=== PATIENT | female | born 1975 | race Caucasian/White ===

== ENCOUNTER → 2020-05-26 12:23 | Outpatient (BNVA) | payer OTHER, SELFPAY | PROVIDERS: PCP Family Medicine; Visit Provider Dietitian, Registered | DX: Z76.89 Persons encountering health services in other specified circumstances (principal) ==

== ENCOUNTER 2020-08-15 12:56 | Outpatient (REF) | payer OTHER, SELFPAY ==
--- NOTE | 2020-08-15 | MM_ITS ---
EXAMINATION: MM SCREENING DIGITAL BREAST TOMOSYNTHESIS, BILATERAL CLINICAL INFORMATION: Screening. Asymptomatic. The lifetime risk of breast cancer based on the Tyrer-Cuzick Model is 11%. COMPARISON: Mammography: 02/24/2018, 01/29/2017 TECHNIQUE: Digital breast tomosynthesis is performed in both the craniocaudal and mediolateral oblique views along with computer-aided detection (CAD). Synthesized 2D images are generated from the tomosynthesis. FINDINGS: There are scattered areas of fibroglandular density (ACR BI-RADS breast composition Category b). There are no significant masses, abnormal calcifications, or other abnormalities. Parenchymal pattern is similar to prior study. The axilla and skin contours are unremarkable. MM/MM tomosynthesis screening BI IMPRESSION: No mammographic evidence of malignancy. ASSESSMENT: BI-RADS 1: Negative RECOMMENDATION: Routine annual mammography screening. This patient's information was entered into a reminder system with a target due date for their next mammogram.
== END 2020-08-15 12:57 | disposition home or self-care (01) ==
LOC: HO.MAMMO 12:56
PROVIDERS: PCP Family Medicine; Visit Provider Family Medicine
DX: Z12.31 Encounter for screening mammogram for malignant neoplasm of breast (principal)
CPT/HCPCS: 77063; 77067

== ENCOUNTER → 2020-08-23 09:19 | Outpatient (BNVA) | payer OTHER, SELFPAY | PROVIDERS: PCP Family Medicine; Visit Provider Physician Assistant | DX: Z76.89 Persons encountering health services in other specified circumstances (principal) ==

== ENCOUNTER → 2020-09-12 07:45 | Outpatient (BNVA) | payer OTHER, SELFPAY | PROVIDERS: PCP Family Medicine; Visit Provider Dietitian, Registered ==

== ENCOUNTER 2020-09-30 07:02 | Outpatient (REF) | payer OTHER, SELFPAY ==
[2020-09-30 07:44] LABS: MANUAL DIFF FLAG NO
[2020-09-30 08:08] LABS: Basophils Percent Auto 0.5 % (0-2); Eosinophils Absolute Auto 0.4 X10*3/uL (0.0-0.4); Eosinophils Percent Auto 6.4 % (0-4); Hematocrit 42.2 % (37-47); Hemoglobin 13.6 g/dl (12.0-16.0); Imm Gran Abs Auto 0.01 X10*3/uL (0.00-0.03); Imm Gran Pct Auto 0.2 % (0.0-0.4); Lymphocytes Absolute Auto 1.8 X10*3/uL (1.2-4.9); Lymphocytes Percent Auto 32.1 % (20-40); Mean Corpuscular HGB Conc 32.2 g/dl (31.0-35.0); Mean Corpuscular Hemoglobin 31.2 pg (27.0-33.0); Mean Corpuscular Volume 96.8 fL (80-98); Mean Platelet Volume 10.1 fL (9.4-12.3); Monocytes Absolute Auto 0.6 X10*3/uL (0.1-1.2); Monocytes Percent Auto 10.5 % (2-11); Neutrophils Absolute Auto 2.9 X10*3/uL (2.0-8.3); Neutrophils Percent Auto 50.3 % (45-73); Platelet Count 282 X10*3/uL (160-400); Red Blood Count 4.36 X10*6/uL (4.20-5.50); Red Cell Distribution Width 12.5 % (11.0-16.0); White Blood Count 5.7 X10*3/uL (4.8-10.8)
[2020-09-30 08:14] LABS: Alanine Aminotransferase 12 U/L (0-31); Albumin Level 4.3 g/dL (3.5-5.0); Alkaline Phosphatase 67 U/L (39-117); Anion Gap 11 (12-20); Aspartate Amino Transferase 18 U/L (5-31); Bilirubin Total 0.8 mg/dL (0.0-1.0); Blood Urea Nitrogen 8 mg/dL (9-16); C Reactive Protein 0.11 mg/dL (< or = 0.50); Carbon Dioxide 28 mmol/L (22-29); Chloride 105 mmol/L (96-108); Cholesterol 168 mg/dL; Estimated Glomerular Filt Rate > 60; Glucose Fasting 97 mg/dL (60-99); HDL Cholesterol 62 mg/dL; Iron 51 mcg/dL (30-160); LDL Cholesterol Calculated 93 mg/dl; Percent Iron Saturation 16 % (15-50); Potassium 4.5 mmol/L (3.3-5.1); Sodium 139 mmol/L (135-145); Total Iron Binding Capacity 320 mcg/dL (228-428); Total Protein 7.1 g/dL (6.5-8.0); Triglycerides 67 mg/dL; Unsaturated Iron Binding 269 ug/dL
[2020-09-30 08:17] LABS: Estimated Average Glucose 105 mg/dL; Hemoglobin A1c % 5.3 %
[2020-09-30 08:38] LABS: Ferritin 8 ng/mL (10-250); TSH reflex Free T4 1.31 uIU/mL (0.32-4.0); Vitamin D 25-OH Total 32.5 ng/mL (>30)
[2020-10-02 08:15] LABS: Folate 19.5 ng/mL (> or = 4.0); Vitamin B12 226 pg/mL (200-900)
[2020-10-02 17:32] LABS: Insulin Level Total 2.9 uIU/mL
[2020-10-03 06:26] LABS: Calcium (PTHI) 9.2 mg/dL (8.6-10.2); PTHI 38 pg/mL (14-64)
[2020-10-03 12:46] LABS: Zinc 71 mcg/dL (60-130)
[2020-10-04 10:22] LABS: Vitamin B1 8 nmol/L (8-30)
[2020-10-05 22:47] LABS: Vitamin A 30 mcg/dL (38-98)
== END 2020-09-30 07:03 | disposition home or self-care (01) ==
LOC: HO.LAB 07:02
PROVIDERS: PCP Family Medicine; Visit Provider Physician Assistant
DX: K91.2 Postsurgical malabsorption, not elsewhere classified (principal); Z90.3 Acquired absence of stomach [part of]; Z98.84 Bariatric surgery status; E66.01 Morbid (severe) obesity due to excess calories
CPT/HCPCS: 36415; 80053; 80061; 82306; 82607; 82728; 82746; 83036; 83525; 83540; 83970; 84425; 84443; 84590; 84630; 85025; 86140

== ENCOUNTER → 2020-10-17 08:03 | Outpatient (BNVA) | payer OTHER, SELFPAY | PROVIDERS: PCP Family Medicine; Visit Provider Dietitian, Registered ==

== ENCOUNTER → 2020-12-05 08:11 | Outpatient (BNVA) | payer OTHER, SELFPAY | PROVIDERS: PCP Family Medicine; Visit Provider Dietitian, Registered ==

== ENCOUNTER → 2020-12-12 08:10 | Outpatient (BNVA) | payer OTHER, SELFPAY | PROVIDERS: PCP Family Medicine; Visit Provider Dietitian, Registered ==

== ENCOUNTER 2021-02-13 14:04 | Inpatient (IN) | payer OTHER, SELFPAY ==
--- NOTE | ~2021-02-13 | XR_ITS ---
EXAMINATION: XR CHEST CLINICAL INFORMATION: NG tube placement COMPARISON: Chest x-ray April 19, 2016 TECHNIQUE: Frontal view of the chest was obtained. FINDINGS: Enteric tube terminates below the diaphragm with the proximal most side port in the region of the GE junction. The cardiac silhouette is normal in size. The lungs are well aerated. There is no lobar consolidation. No pleural effusion or pneumothorax. No gross osseous abnormality. XR/XR chest 1V IMPRESSION: Enteric tube terminates below the diaphragm with the proximal most side port in the region of the GE junction.
--- NOTE | ~2021-02-13 | CT_ITS ---
EXAMINATION: CT ABDOMEN AND PELVIS WITH CONTRAST CLINICAL INFORMATION: Abdominal pain. Gastric bypass. COMPARISON: Pelvic ultrasound dated 02/26/2019. Most recent CT abdomen/pelvis dated 04/25/2016. TECHNIQUE: Multidetector volumetric images were obtained from the superior aspect of the liver through the pubic symphysis following administration 85 mL of Omnipaque 350 intravenous contrast. Sagittal and coronal reformatted images were obtained on the technologist's workstation. Oral Contrast: No. This CT examination was performed using dose optimization techniques as appropriate, variously including the following: *Automated exposure control. *Adjustment of mA and/or kV according to patient size (this includes techniques or standardized protocols for targeted exams where dose is matched to indication/reason for exam; i.e. extremities or head). *Use of iterative reconstruction technique. DLP: 565 mGy-cm FINDINGS: LUNG BASES: The visualized lung bases are unremarkable. LIVER, GALLBLADDER, AND BILIARY TREE: The liver is normal in size, shape, and attenuation. No focal hepatic parenchymal lesion. Mild prominence of the common bile duct, which can be seen following cholecystectomy. The gallbladder is absent. PANCREAS: Unremarkable. SPLEEN: Unremarkable. ADRENAL GLANDS: Unremarkable. KIDNEYS AND URETERS: The kidneys are normal in size, shape, and attenuation. No hydronephrosis, hydroureter, or calculi seen. Left lower pole 0.6 cm hypodensity, unchanged. No perinephric stranding. BLADDER: Unremarkable. GASTROINTESTINAL TRACT: Status post Jaycob-en-Y gastric bypass. There is small bowel dilatation within the left upper quadrant with associated air-fluid levels. Both the proximal small bowel and the distal small bowel as well as the colon are largely nondistended. There appears to be a transition point adjacent to the distal jejunojejunal anastomosis as well as a possible additional transition within the left upper quadrant. Findings are consistent with a small bowel obstruction. An internal hernia and closed loop obstruction could be considered given the patient's history of prior surgery as well as the proximal and distal nondilated small bowel. No associated bowel wall thickening or inflammatory change. No pneumatosis. No evidence of bowel perforation. PERITONEAL CAVITY: No intra-abdominal free air or free fluid. No intra-abdominal mass or organized fluid collection/abscess formation. ABDOMINAL WALL: No significant hernia is appreciated. LYMPH NODES: No significant lymphadenopathy. VASCULAR: Unremarkable. PELVIC VISCERA: The uterus and adnexa are unremarkable. OSSEOUS STRUCTURES: Unremarkable. CT/CT abdomen pelvis w con IMPRESSION: 1. Status post Jaycob-en-Y gastric bypass. Dilated loops of small bowel within the left upper quadrant with possible transition points just proximal to the jejunojejunal anastomosis as well as within the left upper quadrant. The proximal and distal small bowel loops are nondilated. Findings are consistent with a small bowel obstruction. A closed-loop obstruction and internal hernia could be considered given the patient's surgical history. No evidence of bowel ischemia or perforation. 2. No intra-abdominal free air or free fluid. No organized fluid collection/abscess formation. This critical result was discussed with FATIMAH Culp at 7:49 PM on 02/13/2021 and it was ascertained that the content and urgency of the report was understood at the time of direct communication.
[2021-02-13 14:24] VITALS: BP 133/70; PULSE 51; RESP 18; TEMP 36.9; O2SAT 97; BMI 28.5
[2021-02-13 14:45] LABS: MANUAL DIFF FLAG NO
[2021-02-13 14:47] LABS: Basophils Percent Auto 0.3 % (0-2); Eosinophils Percent Auto 0.1 % (0-4); Glucose Urine UA NEG (NEG); Hematocrit 43.8 % (37-47); Hemoglobin 14.6 g/dl (12.0-16.0); Imm Gran Abs Auto 0.04 X10*3/uL (0.00-0.03); Imm Gran Pct Auto 0.3 % (0.0-0.4); Leukocyte Esterase Urine NEG (NEG); Lymphocytes Absolute Auto 1.1 X10*3/uL (1.2-4.9); Lymphocytes Percent Auto 8.5 % (20-40); Mean Corpuscular HGB Conc 33.3 g/dl (31.0-35.0); Mean Corpuscular Hemoglobin 31.5 pg (27.0-33.0); Mean Corpuscular Volume 94.6 fL (80-98); Mean Platelet Volume 10.1 fL (9.4-12.3); Monocytes Percent Auto 7.2 % (2-11); Neutrophils Absolute Auto 11.2 X10*3/uL (2.0-8.3); Neutrophils Percent Auto 83.6 % (45-73); Nitrite Urine NEG (NEG); Platelet Count 356 X10*3/uL (160-400); Red Blood Count 4.63 X10*6/uL (4.20-5.50); Urine Blood TRACE (NEG); Urine Ketones >=80 MG/DL (NEG); Urine Protein TRACE MG/DL (NEG-TRACE); White Blood Count 13.4 X10*3/uL (4.8-10.8)
[2021-02-13 14:49] LABS: Appearance Urine CLEAR; Color Urine YELLOW
[2021-02-13 14:53] LABS: Mucus Urine 2+ /LPF; Squamous Epithelial Cell Urine 2+ /LPF; WBC Urine 0-2 /HPF (0-4)
[2021-02-13 15:19] LABS: Alanine Aminotransferase 11 U/L (0-31); Albumin Level 4.6 g/dL (3.5-5.0); Alkaline Phosphatase 70 U/L (39-117); Anion Gap 14 (12-20); Aspartate Amino Transferase 15 U/L (5-31); Bilirubin Total 0.6 mg/dL (0.0-1.0); Blood Urea Nitrogen 14 mg/dL (9-16); Calcium 9.7 mg/dL (8.4-10.2); Carbon Dioxide 23 mmol/L (22-29); Chloride 106 mmol/L (96-108); Creatinine Clr Calc Pharmacy 94.8; Estimated Glomerular Filt Rate > 60; Glucose Random 140 mg/dL (60-115); Sodium 139 mmol/L (135-145); Total Protein 7.7 g/dL (6.5-8.0)
--- NOTE | 2021-02-13 18:14 | ED_ITS ---
HPI - Abdominal Pain General Chief Complaint: Abdominal Pain Stated Complaint: severe stomach pain, vomitting Time Seen by Provider: 02/13/21 18:09 Source: patient Mode of arrival: ambulatory Limitations: no limitations History of Present Illness HPI narrative: 45-year-old female with past medical history of gastric bypass, malabsorption syndrome following gastrectomy presents with approximately 1 week of 10/10 abdominal pain and distension with nausea, vomiting, and anorexia for the past 3 days. she has been unable to tolerate food or water. She has had intermittent chills but denies fevers, chest pain or pressure, palpitations, shortness breath, shortness breath on exertion, dysuria, hematuria, and edema. MD elicited complaint: abdominal pain Pertinent past history: other ( Jaycob-en-Y gastric bypass) Onset (ago): day(s) Pain Consistency: constant Location: diffuse Severity: severe Pain scale (0-10): 10 Quality: stabbing, aching and fullness Exacerbating factors: vomiting and movement Relieving factors: nothing Associated symptoms: nausea, vomiting, chills and anorexia Related Data Patient : No Home Medications Medication Instructions Recorded Confirmed Biotin 1 tab PO DAILY 08/23/20 02/13/21 cyanocobalamin (vitamin B-12) 1 tab PO DAILY 02/13/21 02/13/21 iron,carbonyl-vitamin C [Vitron-C] 1 tab PO DAILY 02/13/21 02/13/21 multivitamin 1 tab PO DAILY 02/13/21 02/13/21 Allergies Allergy/AdvReac Type Severity Reaction Status Date / Time No Known Allergies Allergy Verified 02/13/21 14:24 [No Known Allergies*] Review of Systems Review of Systems Constitutional: No Weight loss, No Fever, positive Chills, No Night Sweats, No Fatigue, No Malaise ENT/Mouth: No Hearing loss, No Ear Pain, No Nasal Congestion, No Sinus Pain, No Hoarseness, No sore throat, No Rhinorrhea, No Swallowing Difficulty Eyes: No Eye Pain, No Swelling, No Redness, No Foreign Body, No Discharge, No Vision Changes Cardiovascular: No Chest Pain, No SOB, No Dyspnea on Exertion, No Orthopnea, No Edema, No Palpitations Respiratory: No Cough, No Sputum, No Wheezing, No Smoke Exposure, No Dyspnea Gastrointestinal: Positive Nausea, Positive Vomiting, no Diarrhea, positive abdominal Pain, No Hematochezia, No Melena Genitourinary: no irregular bleeding, No Dysuria, No Urinary Frequency, No Hematuria, No Urinary Incontinence, No Urgency, No Flank Pain, No Urinary Flow Changes, No Hesitancy Musculoskeletal: No joint pain, No Myalgias, No Joint Swelling Skin: No Skin Lesions, No rash Neuro: No Weakness, No Numbness, No Paresthesias, No Loss of Consciousness, No Dizziness, No Headache Psych: No Anxiety/Panic, No Depression, No SI/HI/AH/VH, No Social Issues Heme/Lymph: No Bruising, No Bleeding,No Lymphadenopathy Endocrine: No Polyuria, No Polydipsia, No Temperature Intolerance Yes all other systems are reviewed and are negative Physical Exam Vital Signs: Vital Signs: Last Vital Signs Temp 98.7 F 02/13/21 22:00 Pulse 57 02/13/21 22:00 Resp 16 02/13/21 22:00 BP 115/70 02/13/21 22:00 Pulse Ox 97 02/13/21 22:00 Body Mass Index 28.5 Appearance: Alert. Oriented X3. moderate distress in position. Eyes: Pupils equal, round and reactive to light. ENT: Pharynx normal. Neck: Normal inspection. Neck supple. CVS: Normal heart rate and rhythm. Pulses normal. Respiratory: No respiratory distress. Breath sounds normal. Abdomen: Soft and diffusely tender, hyperactive bowel sounds. Skin: Skin warm and dry. Normal skin color. Normal skin turgor. Extremities: No lower extremity edema. Neuro: No motor deficit. No sensory deficit. Course Course Course Narrative: 45-year-old female presents with abdominal pain, abdominal distention, nausea, vomiting, and inability to tolerate p.o. for approximately 3 days. Abdomen is diffusely tender and distended, will order CT scan of abdomen and pelvis with contrast as patient does have a history of Jaycob-en-Y gastric bypass and has symptoms consistent with SBO, colitis, acute abdomen. Will resuscitate with fluids, and pain management with Zofran. CT scan of abdomen and pelvis is positive for small bowel obstruction. Discussion with surgery, bariatric, plan of care is to admit. Will place NG tube. Consultations Consultation #1: Lance COX - Abdominal Pain Differential Diagnosis Differential diagnosis: Likely abdominal pain, acute appendicitis, bowel perforation, calculus of kidney, diverticulitis, mesenteric ischemia, pancreatitis, peptic ulcer disease and small bowel obstruction Medical Records Attestation: I reviewed the patient's medical records. Lab Data Attestation: I reviewed the patient's lab results. Result diagrams: 02/13/21 14:41 02/13/21 14:41 Labs: Lab Results 02/13/21 02/13/21 02/13/21 Range/Units 14:41 14:41 14:41 WBC 13.4 H (4.8-10.8) X10*3/uL RBC 4.63 (4.20-5.50) X10*6/uL Hgb 14.6 (12.0-16.0) g/dl Hct 43.8 (37-47) % MCV 94.6 (80-98) fL MCH 31.5 (27.0-33.0) pg MCHC 33.3 (31.0-35.0) g/dl RDW 13.0 (11.0-16.0) % Plt Count 356 D (160-400) X10*3/uL MPV 10.1 (9.4-12.3) fL Immature Gran % (Auto) 0.3 (0.0-0.4) % Neut % (Auto) 83.6 H (45-73) % Lymph % (Auto) 8.5 L (20-40) % [place] % (Auto) 7.2 (2-11) % Eos % (Auto) 0.1 (0-4) % Baso % (Auto) 0.3 (0-2) % Lymph # (Auto) 1.1 L (1.2-4.9) X10*3/uL [place] # (Auto) 1.0 (0.1-1.2) X10*3/uL Eos # (Auto) 0.0 (0.0-0.4) X10*3/uL Baso # (Auto) 0.0 (0.0-0.2) X10*3/uL Abs Immat Gran (auto) 0.04 H (0.00-0.03) X10*3/uL Absolute Neuts (auto) 11.2 H (2.0-8.3) X10*3/uL Absolute Nucleated RBC 0.000 (0.0-0.012) X10*3/uL Nucleated RBC % (auto) 0.0 (0.0-0.2) /100WBC Hold Blue Top SEE NOTE Sodium 139 (135-145) mmol/L Potassium 4.0 (3.3-5.1) mmol/L Chloride 106 (96-108) mmol/L Carbon Dioxide 23 (22-29) mmol/L Anion Gap 14 (12-20) BUN 14 D (9-16) mg/dL Creatinine 0.76 (0.5-1.4) mg/dL Estim Creat Clear Calc 94.8 Estimated GFR > 60 Random Glucose 140 H (60-115) mg/dL Calcium 9.7 D (8.4-10.2) mg/dL Total Bilirubin 0.6 (0.0-1.0) mg/dL AST 15 (5-31) U/L ALT 11 (0-31) U/L Alkaline Phosphatase 70 (39-117) U/L Total Protein 7.7 (6.5-8.0) g/dL Albumin 4.6 (3.5-5.0) g/dL Urine Color Urine Appearance Urine pH (5.0-8.0) Ur Specific [place] (1.005-1.025) Urine Protein (NEG-TRACE) MG/DL Urine Glucose (UA) (NEG) MG/DL Urine Ketones (NEG) MG/DL Urine Blood (NEG) Urine Nitrite (NEG) Ur Leukocyte Esterase (NEG) Urine RBC (0) /HPF Urine WBC (0-4) /HPF Ur Squamous Epith Cells /LPF Urine Bacteria /LPF Urine Mucus /LPF 02/13/21 Range/Units 14:41 WBC (4.8-10.8) X10*3/uL RBC (4.20-5.50) X10*6/uL Hgb (12.0-16.0) g/dl Hct (37-47) % MCV (80-98) fL MCH (27.0-33.0) pg MCHC (31.0-35.0) g/dl RDW (11.0-16.0) % Plt Count (160-400) X10*3/uL MPV (9.4-12.3) fL Immature Gran % (Auto) (0.0-0.4) % Neut % (Auto) (45-73) % Lymph % (Auto) (20-40) % [place] % (Auto) (2-11) % Eos % (Auto) (0-4) % Baso % (Auto) (0-2) % Lymph # (Auto) (1.2-4.9) X10*3/uL [place] # (Auto) (0.1-1.2) X10*3/uL Eos # (Auto) (0.0-0.4) X10*3/uL Baso # (Auto) (0.0-0.2) X10*3/uL Abs Immat Gran (auto) (0.00-0.03) X10*3/uL Absolute Neuts (auto) (2.0-8.3) X10*3/uL Absolute Nucleated RBC (0.0-0.012) X10*3/uL Nucleated RBC % (auto) (0.0-0.2) /100WBC Hold Blue Top Sodium (135-145) mmol/L Potassium (3.3-5.1) mmol/L Chloride (96-108) mmol/L Carbon Dioxide (22-29) mmol/L Anion Gap (12-20) BUN (9-16) mg/dL Creatinine (0.5-1.4) mg/dL Estim Creat Clear Calc Estimated GFR Random Glucose (60-115) mg/dL Calcium (8.4-10.2) mg/dL Total Bilirubin (0.0-1.0) mg/dL AST (5-31) U/L ALT (0-31) U/L Alkaline Phosphatase (39-117) U/L Total Protein (6.5-8.0) g/dL Albumin (3.5-5.0) g/dL Urine Color YELLOW Urine Appearance CLEAR Urine pH 7.0 (5.0-8.0) Ur Specific [place] 1.020 (1.005-1.025) Urine Protein TRACE (NEG-TRACE) MG/DL Urine Glucose (UA) NEG (NEG) MG/DL Urine Ketones >=80 (NEG) MG/DL Urine Blood TRACE (NEG) Urine Nitrite NEG (NEG) Ur Leukocyte Esterase NEG (NEG) Urine RBC 5-9 H (0) /HPF Urine WBC 0-2 (0-4) /HPF Ur Squamous Epith Cells 2+ /LPF Urine Bacteria NONE /LPF Urine Mucus 2+ /LPF Imaging Data CT abdomen pelvis: Attestation: I personally reviewed and interpreted this imaging study as follows: Radiologist's impression: FINDINGS: LUNG BASES: The visualized lung bases are unremarkable. LIVER, GALLBLADDER, AND BILIARY TREE: The liver is normal in size, shape, and attenuation. No focal hepatic parenchymal lesion. Mild prominence of the common bile duct, which can be seen following cholecystectomy. The gallbladder is absent. PANCREAS: Unremarkable. SPLEEN: Unremarkable. ADRENAL GLANDS: Unremarkable. KIDNEYS AND URETERS: The kidneys are normal in size, shape, and attenuation. No hydronephrosis, hydroureter, or calculi seen. Left lower pole 0.6 cm hypodensity, unchanged. No perinephric stranding. BLADDER: Unremarkable. GASTROINTESTINAL TRACT: Status post Jaycob-en-Y gastric bypass. There is small bowel dilatation within the left upper quadrant with associated air-fluid levels. Both the proximal small bowel and the distal small bowel as well as the colon are largely nondistended. There appears to be a transition point adjacent to the distal jejunojejunal anastomosis as well as a possible additional transition within the left upper quadrant. Findings are consistent with a small bowel obstruction. An internal hernia and closed loop obstruction could be considered given the patient's history of prior surgery as well as the proximal and distal nondilated small bowel. No associated bowel wall thickening or inflammatory change. No pneumatosis. No evidence of bowel perforation. PERITONEAL CAVITY: No intra-abdominal free air or free fluid. No intra-abdominal mass or organized fluid collection/abscess formation. ABDOMINAL WALL: No significant hernia is appreciated. LYMPH NODES: No significant lymphadenopathy. VASCULAR: Unremarkable. PELVIC VISCERA: The uterus and adnexa are unremarkable. OSSEOUS STRUCTURES: Unremarkable. CT/CT abdomen pelvis w con IMPRESSION: 1. Status post Jaycob-en-Y gastric bypass. Dilated loops of small bowel within the left upper quadrant with possible transition points just proximal to the jejunojejunal anastomosis as well as within the left upper quadrant. The proximal and distal small bowel loops are nondilated. Findings are consistent with a small bowel obstruction. A closed-loop obstruction and internal hernia could be considered given the patient's surgical history. No evidence of bowel ischemia or perforation. 2. No intra-abdominal free air or free fluid. No organized fluid collection/abscess formation. This critical result was discussed with FATIMAH Culp at 7:49 PM on 02/13/2021 and it was ascertained that the content and urgency of the report was understood at the time of direct communication. Chest x-ray: Attestation: I personally reviewed and interpreted this imaging study as follows: Radiologist's impression: EXAMINATION: XR CHEST CLINICAL INFORMATION: NG tube placement COMPARISON: Chest x-ray April 19, 2016 TECHNIQUE: Frontal view of the chest was obtained. FINDINGS: Enteric tube terminates below the diaphragm with the proximal most side port in the region of the GE junction. The cardiac silhouette is normal in size. The lungs are well aerated. There is no lobar consolidation. No pleural effusion or pneumothorax. No gross osseous abnormality. XR/XR chest 1V IMPRESSION: Enteric tube terminates below the diaphragm with the proximal most side port in the region of the GE junction. Discharge Plan Discharge Clinical Impression: Small bowel obstruction Patient Disposition: Admitted As Inpatient [facility] Past Medical History Attestation statement: The following information was validated with the patient. Source: old records reviewed Medical History Arthritis Intestinal malabsorption following gastrectomy Overweight (BMI 25.0-29.9) Pre-diabetes Vitamin A deficiency Vitamin B12 deficiency Surgical History Delivery by section S/P gastric bypass S/P laparoscopic appendectomy S/P laparoscopic cholecystectomy Family History Family History Father Type 2 diabetes mellitus HTN (hypertension) Mother HTN (hypertension) Type 2 diabetes mellitus Cancer Maternal Grandmother Type 2 diabetes mellitus Skin cancer Maternal Grandfather No problems noted. Maternal Aunt Breast cancer Brother No problems noted. Son No problems noted. Son No problems noted. Son No problems noted. Social History Social History Alcohol intake: current Alcohol intake frequency: holidays/special occasions only Patient Tobacco Use Status: Never used Tobacco Use of substances other than those prescribed or required for medical reasons: No Advance Directives: No Advance Directives Information Provided: Yes Patient : No service: No Current occupational status: unemployed
[2021-02-13 18:17] VITALS: BP 124/72; PULSE 50; RESP 18; O2SAT 100
[2021-02-13] MEDS: 0.9 % Sodium Chloride 1,000 ML 999 ML IVCONT ×2 (18:25→20:14)
[2021-02-13 18:31] VITALS: RESP 18
[2021-02-13] MEDS: Morphine Sulfate 4 MG/ML CARTRIDGE IVPUSH ×2 (18:31→20:14)
[2021-02-13] MEDS: ondansetron HCL 4 MG/2 ML VIAL IVPUSH (18:32)
[2021-02-13] MEDS: iohexoL 350 MG/ML 100 ML INFUS..BTL 85 ML IV (19:09)
[2021-02-13 20:00] VITALS: BP 111/65; PULSE 56; RESP 16; TEMP 37.2; O2SAT 97
[2021-02-13 21:08] LABS: COVID-19 Test Negative (Negative); IDNOW Serial# 9DD0AD1C
--- NOTE | 2021-02-13 21:22 | PHA.MEDREC ---
Pharmacy Consult ? Medication Reconciliation Pharmacy has completed the medication reconciliation.
[2021-02-13] MEDS: Lidocaine HCl 4 % MPF w/MADgic 5 ML AMPUL 1 APPL TOPICAL (21:37)
--- NOTE | 2021-02-13 21:50 | MHC.CM.ED ---
CM met with pt. A&Ox3. Pt has NG tube in place and is very uncomfortable. Pt answering by nodding, with minimal speech. No HCP on file and pt is not interested in completing one at this time. , Arnold Laurent is contact ([phone]). Pt has no DME or services at home. Expect D/C home without services. to provide transportation home. CM to follow for D/C needs.
[2021-02-13 22:00] VITALS: BP 115/70; PULSE 57; RESP 16; TEMP 37.1; O2SAT 97
--- NOTE | 2021-02-13 23:54 | PC.NURSE ---
RADIOLOGY SHOWS NG TUBE AT GE JUNCTION, NG TUBE ADVANCE 2 INCHED FURTHER INTO NARE. PT COMPLAINED OF UPPER ABDOMINAL CRAMING, SIMILAIR TO WHEN SHE ARRIVED IN ER.
[2021-02-13 23:58] VITALS: BP 132/77; PULSE 54; RESP 16; O2SAT 96
[2021-02-14] VITALS (10 sets, daily range): BP systolic 104–133; BP diastolic 68–79; PULSE 52–69; RESP 15–18; TEMP 36.2–37.2; O2SAT 94–96
[2021-02-14] MEDS: ondansetron HCL 4 MG/2 ML VIAL IVPUSH ×3 (00:16→16:01)
[2021-02-14] MEDS: Morphine Sulfate 2 MG/ML CARTRIDGE IVPUSH ×4 (00:16→12:41)
[2021-02-14] MEDS: Famotidine/PF 20 MG/2 ML VIAL IVPUSH ×3 (00:16→20:24)
[2021-02-14] MEDS: Lactated Ringers 1,000 ML 125 ML IVCONT ×3 (00:17→16:02)
--- NOTE | 2021-02-14 01:40 | PC.NURSE ---
BEDSIDE SUCTION SET TO INTERMITTENT 80MMhG. INITIALLY WHEN NG TUBE INSERTED, SECRETIONS AND WATER FROM INSERTION IN TUBING AND CANISTER. NO MEASURABLE AMOUNT OF GASTRIC CONTENTS FROM NG TUBE. CONFIRMED BY CHEST XRAY AND PISTON SYRINGE, BUBBLING HEARD OVER EPIGASTRIUM WHEN AIR PUSHED THROUGH NG TUBE.
--- NOTE | 2021-02-14 04:54 | PC.NURSE ---
PT ASSISTED TO BEDSIDE COMMODE, ABLE TO VOID. BLOOD IN COMMODE DUE TO PERIOD? SB BLOOD.
[2021-02-14 06:13] LABS: MANUAL DIFF FLAG NO
[2021-02-14 06:18] LABS: Basophils Percent Auto 0.3 % (0-2); Eosinophils Absolute Auto 0.1 X10*3/uL (0.0-0.4); Eosinophils Percent Auto 0.5 % (0-4); Hematocrit 37.8 % (37-47); Hemoglobin 12.2 g/dl (12.0-16.0); Imm Gran Abs Auto 0.05 X10*3/uL (0.00-0.03); Imm Gran Pct Auto 0.4 % (0.0-0.4); Lymphocytes Absolute Auto 0.9 X10*3/uL (1.2-4.9); Lymphocytes Percent Auto 8.1 % (20-40); Mean Corpuscular HGB Conc 32.3 g/dl (31.0-35.0); Mean Corpuscular Hemoglobin 31.3 pg (27.0-33.0); Mean Corpuscular Volume 96.9 fL (80-98); Mean Platelet Volume 10.4 fL (9.4-12.3); Monocytes Absolute Auto 1.3 X10*3/uL (0.1-1.2); Monocytes Percent Auto 11.1 % (2-11); Neutrophils Absolute Auto 9.2 X10*3/uL (2.0-8.3); Neutrophils Percent Auto 79.6 % (45-73); Platelet Count 258 X10*3/uL (160-400); Red Cell Distribution Width 13.2 % (11.0-16.0); White Blood Count 11.5 X10*3/uL (4.8-10.8)
[2021-02-14 06:45] LABS: Alanine Aminotransferase 16 U/L (0-31); Albumin Level 3.7 g/dL (3.5-5.0); Alkaline Phosphatase 59 U/L (39-117); Anion Gap 12 (12-20); Aspartate Amino Transferase 19 U/L (5-31); Bilirubin Total 0.7 mg/dL (0.0-1.0); Blood Urea Nitrogen 12 mg/dL (9-16); Calcium 8.4 mg/dL (8.4-10.2); Carbon Dioxide 23 mmol/L (22-29); Chloride 109 mmol/L (96-108); Creatinine Clr Calc Pharmacy 104.4; Estimated Glomerular Filt Rate > 60; Glucose Random 126 mg/dL (60-115); Magnesium 2.1 mg/dL (1.6-2.6); Potassium 3.9 mmol/L (3.3-5.1); Sodium 140 mmol/L (135-145); Total Protein 6.1 g/dL (6.5-8.0)
[2021-02-14] MEDS: 0.9 % Sodium Chloride Flush 3 ML SYRINGE IVFLUSH (07:40)
--- NOTE | 2021-02-14 07:43 | PC.NURSE ---
PATIENT HAS NO DRAINAGE FORM NG TUBE, CAN SEE SOME CLEAR FLUID IN TUBE. REPORTS HER PAIN HAS DECREASED BUT STILL CAN FEEL PAIN. AIR PUSHED INTO NG TUBE TO CHECK PLACEMENT, COULD HEAR BUBBLING SOUND BUT SOUNDED FAINT. WILL CONTACT [facility] AND NOTIFY.
--- NOTE | 2021-02-14 07:55 | PC.NURSE ---
PATIENT REPOSITIONED AND TUBE FLUSHED WITH AIR AGAIN, COULD HEAR PLACEMENT IN STOMACH BETTER THAN PRIOR. MESSAGE SENT TO OLIVA OJEDA BUT TIGER TEXT UNAVAILABLE AT THIS TIME.
--- NOTE | 2021-02-14 08:29 | PC.NURSE ---
OLIVA SHERIDAN AT BEDSIDE, OK TO REMOVE NG TUBE, NG TUBE REMOVED.
--- NOTE | 2021-02-14 09:31 | PM.HPGS ---
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 She has been doing very well with excellent weight loss and no complications from her surgery until 2 days [facility] when she had an acute onset of mid to left abdominal pain. She states the pain had been consistent over 2 days and was associated with small amounts of cleaar and yellow colored vomitus evry 20 minutes. She had not been able to tolerate and food or liquid intake. She denied flatus or BM's over the past 2 daays except for one episode of lose stool on the day of admissiion. She called the office yesterday and was advised to go to the ED at [facility] to rule out bowel obstruction and dehydration. On arrival to the ED her VSS, labs showed elevation in WBC ct with mild left shift. CT abd revealed proximal bowel dilitation with question of 2 transitionpoints distal to j-j anastomosis. Pt was seen by ED staff and NGT was placed, surgical consult was called and patient was admitted to bariatric surgery service under Dr Mcclain. This am patient reports feeling less abd pain, denies any flatus, BM's or nausea. She is asking about NGT being removed due to pain. Review of Systems Constitutional: Constitutional: Reports as per HPI and Reports no additional constitutional complaints ENT: Denies dysphagia Cardiovascular: Cardiovascular: Denies chest pain, Denies syncope, Denies Loss of Consciousness and Denies dyspnea Respiratory: Respiratory: Denies no additional respiratory complaints, Denies cough, Denies pain on inspiration and Denies dyspnea Gastrointestinal: Gastrointestinal: Reports as per HPI, Denies belching, Denies melena, Denies dysphagia, Denies diarrhea and Denies hematemesis Musculoskeletal: Musculoskeletal: Denies back pain, Denies myalgias and Denies arthralgias Neurologic: Denies syncope PMF Past Medical History Medical History Arthritis Intestinal malabsorption following gastrectomy Overweight (BMI 25.0-29.9) Pre-diabetes Vitamin A deficiency Vitamin B12 deficiency Family History Family History Father Type 2 diabetes mellitus HTN (hypertension) Mother HTN (hypertension) Type 2 diabetes mellitus Cancer Maternal Grandmother Type 2 diabetes mellitus Skin cancer Maternal Grandfather No problems noted. Maternal Aunt Breast cancer Brother No problems noted. Son No problems noted. Son No problems noted. Son No problems noted. Surgical History Surgical History Delivery by section S/P gastric bypass S/P laparoscopic appendectomy S/P laparoscopic cholecystectomy Social History Social History Alcohol intake: current Alcohol intake frequency: holidays/special occasions only Patient Tobacco Use Status: Never used Tobacco Use of substances other than those prescribed or required for medical reasons: No Advance Directives: No Advance Directives Information Provided: Yes Patient : No service: No Current occupational status: unemployed Meds Allergies Allergy/AdvReac Type Severity Reaction Status Date / Time No Known Allergies Allergy Verified 02/13/21 14:24 [No Known Allergies*] Active Medications: Current Medications Generic Name Dose Route Start Last Admin Trade Name Surinder PRN Reason Stop Dose Admin Famotidine 20 mg 02/13/21 23:58 02/14/21 08:37 Famotidine/Pf 20 Mg/2 Ml Vial IVPUSH 20 mg BID VIET Administration Lactated Ringer's 1,000 mls @ 125 mls/hr 02/13/21 23:58 02/14/21 07:37 Lr IVCONT 125 mls/hr .Q8H VIET Administration Morphine Sulfate 2 mg 02/13/21 23:58 02/14/21 08:37 Morphine Sulfate 2 Mg/Ml Cartridge IVPUSH 2 mg Q4H PRN Administration Pain, Moderate (Pain Scale 4-6 Ondansetron HCl 4 mg 02/14/21 00:00 02/14/21 07:30 Ondansetron Hcl 4 Mg/2 Ml Vial IVPUSH 4 mg Q8H VIET Administration Sodium Chloride 3 ml 02/14/21 00:00 02/14/21 07:40 0.9 % Sodium Chloride Flush 3 Ml Syringe IVFLUSH 3 ml QSHIFT VIET Administration Home Medications Medication Instructions Recorded Confirmed Last Taken Type Biotin 1 tab PO DAILY 08/23/20 02/13/21 02/11/21 History cyanocobalamin (vitamin B-12) 1 tab PO DAILY 02/13/21 02/13/21 02/11/21 History iron,carbonyl-vitamin C [Vitron-C] 1 tab PO DAILY 02/13/21 02/13/21 Unknown History multivitamin 1 tab PO DAILY 02/13/21 02/13/21 02/11/21 History Physical Exam Vital Signs: Vital Signs: Last Vital Signs Temp 98.7 F 02/14/21 06:29 Pulse 69 02/14/21 07:28 Resp 16 02/14/21 07:28 BP 133/79 02/14/21 08:38 Pulse Ox 96 02/14/21 07:28 Body Mass Index 28.5 Const: Other: Pt is lying in bed in ED. General: cooperative, healthy appearing, comfortable, no acute distress, well developed, alert and awake Nutritional Appearance: average body habitus Limitations: no limitations Resp: Effort & Inspection: normal respiratory effort, no audible wheezes, no cough and not labored Auscultation: clear to auscultation bilaterally Cardio: Rate: regular rate Rhythm: regular rhythm Heart sounds: normal S1 and S2 GI: Inspection: Yes normal to inspection and No distended Palpation (GI): Soft to palpation (mild fullness felt LUQ with minimal tenderness), no guarding, not rigid, no hernias and no masses Auscultation: Absent bowel sounds Extrem: General: Yes normal to inspection, Yes no calf tenderness and No edema Psych: Appearance: grossly normal Speech and movement: Normal speech and movement present Affect: normal affect Thought process: Normal thought process present Insight: Good insight present (Psych) Results Results Labs: Short CBC 02/13/21 02/14/21 Range/Units 14:41 06:03 WBC 13.4 H 11.5 H (4.8-10.8) X10*3/uL Hgb 14.6 12.2 (12.0-16.0) g/dl Hct 43.8 37.8 (37-47) % Plt Count 356 D 258 D (160-400) X10*3/uL BMP 02/13/21 02/14/21 14:41 06:03 Sodium 139 140 Potassium 4.0 3.9 Chloride 106 109 H Carbon Dioxide 23 23 BUN 14 D 12 Creatinine 0.76 0.69 Calcium 9.7 D 8.4 D Liver Function 02/13/21 02/14/21 Range/Units 14:41 06:03 Total Bilirubin 0.6 0.7 (0.0-1.0) mg/dL AST 15 19 (5-31) U/L ALT 11 16 (0-31) U/L Alkaline Phosphatase 70 59 (39-117) U/L Albumin 4.6 3.7 (3.5-5.0) g/dL Urine 02/13/21 Range/Units 14:41 Urine Color YELLOW Urine Appearance CLEAR Urine pH 7.0 (5.0-8.0) Ur Specific [place] 1.020 (1.005-1.025) Urine Protein TRACE (NEG-TRACE) MG/DL Urine Glucose (UA) NEG (NEG) MG/DL Abdomen CT scan report/results: report reviewed and image reviewed (discussed with Dr Mcclain) Assessment and Plan (1) Small bowel obstruction: Status: Acute (2) S/P gastric bypass: Status: Acute (3) Leukocytosis: Status: Acute 45 yo woman 5 years s/p RNYGBP who presents with small bowel obstruction and possible internal hernia. Pt is stable and her conditioned has improved with NPO and bowel rest, WBC count improved with hydration. NGT removed this am- no output. Will continue expectant management for now, repeat labs in am and possible repeat CT abd. If no further improvement in 24 hours plan would be exploratory laparoscopy for potential repair of internal hernia and release of bowel obstruction. Case discussed with Dr. Mcclain and patient is aware and agrees with treatment plan. Quality Stroke Does the patient have a stroke diagnosis?: No VTE Prior VTE?: No VTE Risk Level:: Medical - low VTE Device Contraindication: N/A - Device Ordered VTE Drug Contraindication: Treatment Not Indicated Procedures Date of Service Date of Service: 02/14/21
--- NOTE | 2021-02-14 13:53 | PC.NURSE ---
REPORT GIVEN TO [facility] RN. PT REQUESTING PAIN CONTROL JUST PRIOR TO TRANSPORT.
[2021-02-14] MEDS: HYDROmorphone HCl 0.5 MG/0.5 ML SYRINGE IVPUSH ×4 (13:56→20:24)
[2021-02-14 18:21] LABS: UPreg QC Valid YES; Urine Pregnancy NEGATIVE (NEGATIVE)
[2021-02-15] VITALS (14 sets, daily range): BP systolic 112–136; BP diastolic 65–82; PULSE 51–93; RESP 16–20; TEMP 36–37.5; O2SAT 92–99
[2021-02-15] MEDS: ondansetron HCL 4 MG/2 ML VIAL IVPUSH ×3 (00:11→16:15)
[2021-02-15] MEDS: Lactated Ringers 1,000 ML 125 ML IVCONT ×3 (00:11→16:35)
[2021-02-15 06:53] LABS: MANUAL DIFF FLAG NO
[2021-02-15 07:03] LABS: Basophils Percent Auto 0.3 % (0-2); Eosinophils Absolute Auto 0.1 X10*3/uL (0.0-0.4); Eosinophils Percent Auto 1.9 % (0-4); Hematocrit 36.5 % (37-47); Hemoglobin 11.9 g/dl (12.0-16.0); Imm Gran Abs Auto 0.02 X10*3/uL (0.00-0.03); Imm Gran Pct Auto 0.3 % (0.0-0.4); Lymphocytes Absolute Auto 0.7 X10*3/uL (1.2-4.9); Lymphocytes Percent Auto 11.5 % (20-40); Mean Corpuscular HGB Conc 32.6 g/dl (31.0-35.0); Mean Corpuscular Hemoglobin 31.7 pg (27.0-33.0); Mean Corpuscular Volume 97.3 fL (80-98); Mean Platelet Volume 10.9 fL (9.4-12.3); Monocytes Absolute Auto 1.1 X10*3/uL (0.1-1.2); Monocytes Percent Auto 16.8 % (2-11); Neutrophils Absolute Auto 4.5 X10*3/uL (2.0-8.3); Neutrophils Percent Auto 69.2 % (45-73); Platelet Count 205 X10*3/uL (160-400); Red Blood Count 3.75 X10*6/uL (4.20-5.50); Red Cell Distribution Width 12.8 % (11.0-16.0); White Blood Count 6.4 X10*3/uL (4.8-10.8)
[2021-02-15 07:50] LABS: Alanine Aminotransferase 13 U/L (0-31); Albumin Level 3.4 g/dL (3.5-5.0); Alkaline Phosphatase 60 U/L (39-117); Anion Gap 12 (12-20); Aspartate Amino Transferase 17 U/L (5-31); Blood Urea Nitrogen 11 mg/dL (9-16); Carbon Dioxide 25 mmol/L (22-29); Chloride 106 mmol/L (96-108); Creatinine Clr Calc Pharmacy 116.2; Estimated Glomerular Filt Rate > 60; Glucose Random 102 mg/dL (60-115); Potassium 3.9 mmol/L (3.3-5.1); Sodium 139 mmol/L (135-145); Total Protein 5.6 g/dL (6.5-8.0)
[2021-02-15] MEDS: Famotidine/PF 20 MG/2 ML VIAL IVPUSH ×2 (08:17→21:36)
[2021-02-15] MEDS: HYDROmorphone HCl 0.5 MG/0.5 ML SYRINGE IVPUSH ×2 (08:17→19:38)
--- NOTE | 2021-02-15 09:12 | PM.PNGS ---
Subjective Subjective Date of Service: 02/15/21 Interval history: This is HD # 2 for patient admitted with SBO after RNYGBP surgery in 2016. Pt states that she has a history of similar symptoms of pain and emesis x 24hrs 1 month ago which resolved on its own. She states she was feeling better overnight but is experiencing more abd pain this am. She tried to have BM this morning without stool or flatus. No nausea. Is receiving dilaudid for pain 4 times yesterday. No new complaints Physical Exam Vital Signs: Vital Signs: Last Vital Signs Temp 97.8 F 02/15/21 07:40 Pulse 67 02/15/21 07:40 Resp 19 02/15/21 07:40 BP 113/65 02/15/21 07:40 Pulse Ox 96 02/15/21 07:40 Body Mass Index 28.5 Const: General: cooperative, comfortable and no acute distress Nutritional Appearance: average body habitus Orientation/consciousness: patient oriented x3 GI: Inspection: Yes normal to inspection and No distended Palpation (GI): Soft to palpation, Tenderness to palpation present (GI) (tender in mid epigastrium and LuQ), no guarding, not rigid, no hernias and no masses Neuro: General: patient oriented x3 Extrem: General: Yes normal to inspection, Yes no pedal edema, Yes no calf tenderness and Yes other (no compression stockings in place) Progress Note: A&P Fall Risk Details Current Medications: Current Medications Generic Name Dose Route Start Last Admin Trade Name Freq PRN Reason Stop Dose Admin Famotidine 20 mg 02/13/21 23:58 02/15/21 08:17 Famotidine/Pf 20 Mg/2 Ml Vial IVPUSH 20 mg BID VIET Administration Hydromorphone HCl 0.5 mg 02/14/21 13:18 02/15/21 08:17 Hydromorphone Hcl 0.5 Mg/0.5 Ml Syringe IVPUSH 0.5 mg Q2H PRN Administration pain' Lactated Ringer's 1,000 mls @ 125 mls/hr 02/13/21 23:58 02/15/21 05:47 Lr IVCONT 125 mls/hr .Q8H VIET Administration Promethazine HCl 12.5 mg/ 50.5 mls @ 202 mls/hr 02/14/21 13:18 02/14/21 15:04 Sodium Chloride IV Infused Q4H PRN Infusion nausea Ondansetron HCl 4 mg 02/14/21 00:00 02/15/21 08:17 Ondansetron Hcl 4 Mg/2 Ml Vial IVPUSH 4 mg Q8H VIET Administration Sodium Chloride 3 ml 02/14/21 00:00 02/15/21 08:16 0.9 % Sodium Chloride Flush 3 Ml Syringe IVFLUSH Not Given QSHIFT VIET Time Spent With Patient Time: HD# 2 for 45 yo woman with history of intermittent SBO s/p RNYGBP. No flatus or BM since admission, labs normalized. Discussed with Dr Mcclain and patient. Plan per Dr Mcclain is for exploratory laparoscopic surgery today. Likely internal hernia causing intermittent bowel obstruction. Total time spent is greater than 50% in coordination of care (as documented) at patient's floor/unit and/or counseling patient: Time with patient: 25 - 35 minutes Procedures Date of Service Date of Service: 02/15/21 Quality Stroke Does the patient have a stroke diagnosis?: No VTE Prior VTE?: No VTE Risk Level:: Medical - low VTE Device Contraindication: N/A - Device Ordered VTE Drug Contraindication: Treatment Not Indicated
[2021-02-15 09:51] LABS: INTERNATIONAL NORM RATIO 1.2 (0.9-1.1)
--- NOTE | 2021-02-15 12:02 | P.CONAN_ITS ---
[facility] Active Problems Active Problems: All Active Problems (Updated 02/14/21 @ 09:44 by Zenaida noguera PA-C) Small bowel obstruction (Acute) S/P gastric bypass (Acute) Leukocytosis (Acute) Vitamin B12 deficiency (Acute) Vitamin A deficiency (Acute) Laboratory examination ordered as part of a routine general medical examination (Acute) Intestinal malabsorption following gastrectomy (Acute) Overweight (BMI 25.0-29.9) (Acute) Past Medical History Medical History Arthritis Intestinal malabsorption following gastrectomy Overweight (BMI 25.0-29.9) Pre-diabetes Vitamin A deficiency Vitamin B12 deficiency Family History Family History Father Type 2 diabetes mellitus HTN (hypertension) Mother HTN (hypertension) Type 2 diabetes mellitus Cancer Maternal Grandmother Type 2 diabetes mellitus Skin cancer Maternal Grandfather No problems noted. Maternal Aunt Breast cancer Brother No problems noted. Son No problems noted. Son No problems noted. Son No problems noted. Surgical History Surgical History Delivery by section S/P gastric bypass S/P laparoscopic appendectomy S/P laparoscopic cholecystectomy Social History Social History Household Members: Spouse and Children Housing: House Do you presently have visiting nurse or other home services: No Alcohol intake: current Alcohol intake frequency: holidays/special occasions only Patient Tobacco Use Status: Never used Tobacco service: No Current occupational status: unemployed Meds Allergies Allergy/AdvReac Type Severity Reaction Status Date / Time No Known Allergies Allergy Verified 02/13/21 14:24 [No Known Allergies*] Active Medications: Current Medications Generic Name Dose Route Start Last Admin Trade Name Freq PRN Reason Stop Dose Admin Famotidine 20 mg 02/13/21 23:58 02/15/21 08:17 Famotidine/Pf 20 Mg/2 Ml Vial IVPUSH 20 mg BID VIET Administration Hydromorphone HCl 0.5 mg 02/14/21 13:18 02/15/21 08:17 Hydromorphone Hcl 0.5 Mg/0.5 Ml Syringe IVPUSH 0.5 mg Q2H PRN Administration pain' Lactated Ringer's 1,000 mls @ 125 mls/hr 02/13/21 23:58 02/15/21 05:47 Lr IVCONT 125 mls/hr .Q8H VIET Administration Promethazine HCl 12.5 mg/ 50.5 mls @ 202 mls/hr 02/14/21 13:18 02/14/21 15:04 Sodium Chloride IV Infused Q4H PRN Infusion nausea Ondansetron HCl 4 mg 02/14/21 00:00 02/15/21 08:17 Ondansetron Hcl 4 Mg/2 Ml Vial IVPUSH 4 mg Q8H VIET Administration Sodium Chloride 3 ml 02/14/21 00:00 02/15/21 08:16 0.9 % Sodium Chloride Flush 3 Ml Syringe IVFLUSH Not Given QSHIFT [facility] Home Medications Medication Instructions Recorded Confirmed Last Taken Type Biotin 1 tab PO DAILY 08/23/20 02/13/21 02/11/21 History cyanocobalamin (vitamin B-12) 1 tab PO DAILY 02/13/21 02/13/21 02/11/21 History iron,carbonyl-vitamin C [Vitron-C] 1 tab PO DAILY 02/13/21 02/13/21 Unknown History multivitamin 1 tab PO DAILY 02/13/21 02/13/21 02/11/21 History Exam Exam Date and Time: February 15, 2021 1202 Height,Weight and Vital Signs: Height 5 ft 4 in Weight 75.296 kg Last Vital Signs Temp 98.6 F 02/15/21 11:28 Pulse 51 02/15/21 11:28 Resp 20 02/15/21 11:28 BP 114/73 02/15/21 11:28 Pulse Ox 97 02/15/21 11:28 Pertinent Lab Results Pertinent Lab Results: Laboratory Tests 02/13/21 02/13/21 02/13/21 14:41 14:41 14:41 WBC 13.4 H RBC 4.63 Hgb 14.6 Hct 43.8 MCV 94.6 MCH 31.5 MCHC 33.3 RDW 13.0 Plt Count 356 D MPV 10.1 Immature Gran % (Auto) 0.3 Neut % (Auto) 83.6 H Lymph % (Auto) 8.5 L Ashley % (Auto) 7.2 Eos % (Auto) 0.1 Baso % (Auto) 0.3 Lymph # (Auto) 1.1 L Ashley # (Auto) 1.0 Eos # (Auto) 0.0 Baso # (Auto) 0.0 Abs Immat Gran (auto) 0.04 H Absolute Neuts (auto) 11.2 H Absolute Nucleated RBC 0.000 Nucleated RBC % (auto) 0.0 PT INR Hold Blue Top SEE NOTE Sodium 139 Potassium 4.0 Chloride 106 Carbon Dioxide 23 Anion Gap 14 BUN 14 D Creatinine 0.76 Estim Creat Clear Calc 94.8 Estimated GFR > 60 Random Glucose 140 H Calcium 9.7 D Magnesium Total Bilirubin 0.6 AST 15 ALT 11 Alkaline Phosphatase 70 Total Protein 7.7 Albumin 4.6 Urine Color Urine Appearance Urine pH Ur Specific [place] Urine Protein Urine Glucose (UA) Urine Ketones Urine Blood Urine Nitrite Ur Leukocyte Esterase Urine RBC Urine WBC Ur Squamous Epith Cells Urine Bacteria Urine Mucus Urine Test COVID-19 (EDU) COVID-19 Clin Com Blood Type Antibody Screen 02/13/21 02/13/21 02/14/21 14:41 20:46 06:03 WBC 11.5 H RBC 3.90 L Hgb 12.2 Hct 37.8 MCV 96.9 MCH 31.3 MCHC 32.3 RDW 13.2 Plt Count 258 D MPV 10.4 Immature Gran % (Auto) 0.4 Neut % (Auto) 79.6 H Lymph % (Auto) 8.1 L Ashley % (Auto) 11.1 H Eos % (Auto) 0.5 Baso % (Auto) 0.3 Lymph # (Auto) 0.9 L Ashley # (Auto) 1.3 H Eos # (Auto) 0.1 Baso # (Auto) 0.0 Abs Immat Gran (auto) 0.05 H Absolute Neuts (auto) 9.2 H Absolute Nucleated RBC 0.000 Nucleated RBC % (auto) 0.0 PT INR Hold Blue Top Sodium Potassium Chloride Carbon Dioxide Anion Gap BUN Creatinine Estim Creat Clear Calc Estimated GFR Random Glucose Calcium Magnesium Total Bilirubin AST ALT Alkaline Phosphatase Total Protein Albumin Urine Color YELLOW Urine Appearance CLEAR Urine pH 7.0 Ur Specific [place] 1.020 Urine Protein TRACE Urine Glucose (UA) NEG Urine Ketones >=80 Urine Blood TRACE Urine Nitrite NEG Ur Leukocyte Esterase NEG Urine RBC 5-9 H Urine WBC 0-2 Ur Squamous Epith Cells 2+ Urine Bacteria NONE Urine Mucus 2+ Urine Test COVID-19 (EDU) Negative COVID-19 Clin Com See Note Blood Type Antibody Screen 02/14/21 02/14/21 02/15/21 06:03 18:00 06:04 WBC 6.4 RBC 3.75 L Hgb 11.9 L Hct 36.5 L MCV 97.3 MCH 31.7 MCHC 32.6 RDW 12.8 Plt Count 205 MPV 10.9 Immature Gran % (Auto) 0.3 Neut % (Auto) 69.2 Lymph % (Auto) 11.5 L Ashley % (Auto) 16.8 H Eos % (Auto) 1.9 Baso % (Auto) 0.3 Lymph # (Auto) 0.7 L Ashley # (Auto) 1.1 Eos # (Auto) 0.1 Baso # (Auto) 0.0 Abs Immat Gran (auto) 0.02 Absolute Neuts (auto) 4.5 Absolute Nucleated RBC 0.000 Nucleated RBC % (auto) 0.0 PT INR Hold Blue Top Sodium 140 Potassium 3.9 Chloride 109 H Carbon Dioxide 23 Anion Gap 12 BUN 12 Creatinine 0.69 Estim Creat Clear Calc 104.4 Estimated GFR > 60 Random Glucose 126 H Calcium 8.4 D Magnesium 2.1 Total Bilirubin 0.7 AST 19 ALT 16 Alkaline Phosphatase 59 Total Protein 6.1 L D Albumin 3.7 Urine Color Urine Appearance Urine pH Ur Specific [place] Urine Protein Urine Glucose (UA) Urine Ketones Urine Blood Urine Nitrite Ur Leukocyte Esterase Urine RBC Urine WBC Ur Squamous Epith Cells Urine Bacteria Urine Mucus Urine Test NEGATIVE COVID-19 (EDU) COVID-19 Clin Com Blood Type Antibody Screen 02/15/21 02/15/21 02/15/21 06:04 09:36 09:37 WBC RBC Hgb Hct MCV MCH MCHC RDW Plt Count MPV Immature Gran % (Auto) Neut % (Auto) Lymph % (Auto) Ashley % (Auto) Eos % (Auto) Baso % (Auto) Lymph # (Auto) Ashley # (Auto) Eos # (Auto) Baso # (Auto) Abs Immat Gran (auto) Absolute Neuts (auto) Absolute Nucleated RBC Nucleated RBC % (auto) PT 14.0 H INR 1.2 H Hold Blue Top Sodium 139 Potassium 3.9 Chloride 106 Carbon Dioxide 25 Anion Gap 12 BUN 11 Creatinine 0.62 Estim Creat Clear Calc 116.2 Estimated GFR > 60 Random Glucose 102 Calcium 8.0 L Magnesium Total Bilirubin 1.0 AST 17 ALT 13 Alkaline Phosphatase 60 Total Protein 5.6 L Albumin 3.4 L Urine Color Urine Appearance Urine pH Ur Specific [place] Urine Protein Urine Glucose (UA) Urine Ketones Urine Blood Urine Nitrite Ur Leukocyte Esterase Urine RBC Urine WBC Ur Squamous Epith Cells Urine Bacteria Urine Mucus Urine Test COVID-19 (EDU) COVID-19 Clin Com Blood Type O Positive Antibody Screen NEGATIVE Airway Mallampati Class: II TM Dist: >3cm Neck ROM: Full Heart: RRR Lungs: CTA
[2021-02-15] MEDS: Lactated Ringers 500 ML 20 ML IVCONT (12:08)
--- NOTE | 2021-02-15 14:58 | PM.DS ---
DS: Providers Provider Date of Service: 02/16/21 Date of admission: 02/13/21 20:43 Primary care physician: Carlos Uriarte MD DS: Diagnosis Discharge Diagnosis (1) Small bowel obstruction: Status: Acute (2) S/P gastric bypass: Status: Acute (3) S/P laparoscopic procedure: Status: Acute (4) Intra-abdominal adhesions: Status: Acute DS: Medications Discharge Medications Home Medications: Home Medications Medication Instructions Recorded Confirmed Biotin 1 tab PO DAILY 08/23/20 02/13/21 cyanocobalamin (vitamin B-12) 1 tab PO DAILY 02/13/21 02/13/21 iron,carbonyl-vitamin C [Vitron-C] 1 tab PO DAILY 02/13/21 02/13/21 multivitamin 1 tab PO DAILY 02/13/21 02/13/21 DS: Summary Time Spent with Patient Time attestation: DATE OF SERVICE: 2020 ADMITTING DIAGNOSES: small bowel obstruction s/p RNYGBP 2016 DISCHARGE DIAGNOSES: same with intra abdominal adhesion causing small bowel obstruction PROCEDURE PERFORMED: diagnostic laparoscopic with lysis of adhesion DISCHARGE MEDICATIONS: acetominophen for pain DISCHARGE INSTRUCTIONS: The patient should continue on the stage 6 bariatric diet. Pt may, shower walk daily and after 1 week may start walking 1 miles up to 2 miles every other day until seen in office. She should call with any questions or concerns such as increase in abdominal pain, persistent nausea, vomiting, redness and drainage from her incisions, fever, chills, shortness of breast, or chest pain beyond what is normal for her. The patient should avoid all heavy lifting greater than 5 pounds for the next 4 weeks. The patient is already scheduled to follow up with me in 2 weeks time, but should call the office with any questions prior to that follow up appointment. The patient should not advance her diet until she is seen in the office for the 2 week appointment. HOSPITAL COURSE: The patient was admitted on February 13, [address] scan results of SBO. Pt had stable VS and labs. NGT was placed in ED prior to surgical consult with 0 output and removed in am. Pt was monitored, NPO and on POD#2 still exhibited signs of SBO was brought to OR and underwent laparoscopic lysis of one adhesive band responsible for SBO. She was started on clear liquid diet and was tolerating well without nausea or vomiting. Her pain was controlled on IV Dilaudid/IV acetaminophen. All labs were within normal limits. On post-operative day #1 she was feeling better, was tolerating bariatric 6 diet well with out nausea or emesis and was discharged home. DISCHARGE DISPOSITION: Home.Total time spent providing and/or coordinating discharge services: Discharge coordination time: Less than 30 minutes Quality: Stroke Does the patient have a stroke diagnosis?: No Physical Exam Vital Signs: Vital Signs: Last Vital Signs Temp 99.5 F 02/15/21 11:57 Pulse 60 02/15/21 11:57 Resp 16 02/15/21 11:57 BP 120/72 02/15/21 11:57 Pulse Ox 97 02/15/21 11:57 Body Mass Index 28.5 DS: Data Data Completed and Pending Labs on day of discharge: Laboratory Results - last 24 hr 02/14/21 02/15/21 02/15/21 18:00 06:04 06:04 WBC 6.4 RBC 3.75 L Hgb 11.9 L Hct 36.5 L MCV 97.3 MCH 31.7 MCHC 32.6 RDW 12.8 Plt Count 205 MPV 10.9 Immature Gran % (Auto) 0.3 Neut % (Auto) 69.2 Lymph % (Auto) 11.5 L Weld % (Auto) 16.8 H Eos % (Auto) 1.9 Baso % (Auto) 0.3 Lymph # (Auto) 0.7 L Weld # (Auto) 1.1 Eos # (Auto) 0.1 Baso # (Auto) 0.0 Abs Immat Gran (auto) 0.02 Absolute Neuts (auto) 4.5 Absolute Nucleated RBC 0.000 Nucleated RBC % (auto) 0.0 PT INR Sodium 139 Potassium 3.9 Chloride 106 Carbon Dioxide 25 Anion Gap 12 BUN 11 Creatinine 0.62 Estim Creat Clear Calc 116.2 Estimated GFR > 60 Random Glucose 102 Calcium 8.0 L Total Bilirubin 1.0 AST 17 ALT 13 Alkaline Phosphatase 60 Total Protein 5.6 L Albumin 3.4 L Urine Test NEGATIVE Blood Type Antibody Screen 02/15/21 02/15/21 09:36 09:37 WBC RBC Hgb Hct MCV MCH MCHC RDW Plt Count MPV Immature Gran % (Auto) Neut % (Auto) Lymph % (Auto) Weld % (Auto) Eos % (Auto) Baso % (Auto) Lymph # (Auto) Weld # (Auto) Eos # (Auto) Baso # (Auto) Abs Immat Gran (auto) Absolute Neuts (auto) Absolute Nucleated RBC Nucleated RBC % (auto) PT 14.0 H INR 1.2 H Sodium Potassium Chloride Carbon Dioxide Anion Gap BUN Creatinine Estim Creat Clear Calc Estimated GFR Random Glucose Calcium Total Bilirubin AST ALT Alkaline Phosphatase Total Protein Albumin Urine Test Blood Type O Positive Antibody Screen NEGATIVE Discharge Plan Discharge Anticipated Discharge Date/Time: 02/16/21 11:54 Patient Disposition: Home, Self-Care Discharge Diagnosis: small bowel obstruction Referrals: Carlos Uriarte MD [Primary Care Provider] - 1 Week Discharge Medications: Continued multivitamin Tablet 1 tab PO DAILY RF: 0 cyanocobalamin (vitamin B-12) 500 mcg tablet,disintegrating 1 tab PO DAILY RF: 0 Vitron-C 65 mg iron- 125 mg Tablet,Delayed Release (Dr/Ec) 1 tab PO DAILY RF: 0 Biotin 1 tab PO DAILY RF: 0 Discharge Orders: Discharge Order (Routine); Ordered 02/16/21 Ordered By: Zenaida Hightower Diet: advance to usual diet Activity on Discharge: No Running or jogging Stand Alone Forms: Patient Portal Discharge page Activity Restrictions/Additional Instructions: No tub baths, sex or returning to work until discussed at first post op appointment. No exercise, alcohol, tobacco or illegal drug use. Continue to use incentive spirometer hourly while awake. Walk in home for 5- 10 minutes every 2 hours during the first week. 1. Please call your doctor or come back to the emergency room should any new symptoms arise. 2. You will receive a courtesy call from [facility] 24-48 hours after discharge. 3. Activity: abstain from alcohol, practice limited stair climbing, no bending, no driving, no exercise, no illicit substances, no lifting, no sex, no tub bath, no work. 4. Diet: Advance to your regular diet 5. Dressing Change/Wound Care: Your incision is covered by surgical glue. If the area is tender, you may apply an ice pack for short intervals (no more than 20 minutes on, followed by at least 20 minutes off). Do not apply heat. Do not use creams, lotions, or topical antibiotics unless instructed to do so by your surgeon. These can cause infection or allergic reaction. 6. Call your doctor if: - Your temperature exceeds 101.5 F - You experience excessive pain or swelling - You have an unexpected reaction to medication - You have excessive bleeding - You experience continued vomiting/nausea - Your incision begins to separate - Your incision shows signs of infection such as increased redness, swelling, excessive pain, heat, or drainage (light blood or clear fluid is normal) 7. General instructions: No lifting greater than 5 lbs for the next 4 weeks[address] driving within 24 hours of taking narcotic pain medications. If you do not move your bowels in the next 2 days, please take milk of magnesia over the counter. Please follow the post op diet and do not advance your diet until you are seen in the office in about 2 weeks. Please walk around your home every hour or two to prevent blood clots from forming in your legs. You do not need to wake from sleeping to walk. Please sleep in a bed or couch to prevent kinking at the hips and knees. Please take your incentive spirometer (your lung accountant certified public) home with you and use it for the next few days to prevent pneumonias. You may shower, no hot tubs, baths or swimming pools. Please call the office with any questions or concerns such as increasing abdominal pain, fever, chills, shortness of breath, chest pain, leg pain or swelling, or redness or drainage from your incisions. Do not hesitate to contact the office with any questions at . The patient's medical history has been reviewed and they are considered low risk for post op DVT and therefore DVT prophylaxis is not considered necessary. Travel after surgery was reviewed. The patient has not disclosed any travel plans during the first 30 days after surgery and they have been advised that within the first 30 days after surgery any bus, plane, train or car travel over 2 hours in duration is contraindicated due to the possibility of developing blood clots from immobility. Any travel, needs to include periods of ambulation of 10 minutes in duration every 2 hours. The patient was instructed to discuss any plans for travel during this period with their bariatric surgeon. Care Plan Goals: Advance to her regular diet Health Concerns: Malabsorption s/p GBP Plan of Treatment: see discharge instructions Assessment: stable POD#1 diagnostic laparoscopu and DALIA
--- NOTE | 2021-02-15 15:00 | P.BOP_ITS ---
Brief Operative Note Date of Service: 02/15/21 Pre-op diagnosis: Left upper quadrant pain and small-bowel obstruction Post-op diagnosis: other ( intra-abdominal adhesion with torsion of the small intestine) Procedure: diagnostic laparoscopy, lysis of adhesions Implants: none Surgeon: Nina Mcclain MD Anesthesia: GETA Was an Information Coordinator used for this Procedure?: Yes Information Coordinator: Zenaida Hightower Estimated blood loss (mL): 5 Pathology: none sent Condition: stable Disposition: PACU
--- NOTE | 2021-02-15 21:33 | OP_ITS ---
SURGEON: Nina Mcclain MD PREOPERATIVE DIAGNOSIS: Left upper quadrant pain with small-bowel obstruction. POSTOPERATIVE DIAGNOSIS: PROCEDURE PERFORMED: Diagnostic laparoscopy with lysis of adhesions. ESTIMATED BLOOD LOSS: COMPLICATIONS: None. ANESTHESIA: ASSISTANTS: SPECIMENS: POSTPROCEDURE DIAGNOSIS: Intraabdominal adhesion in left upper quadrant from the small intestine to the abdominal wall causing torsion of the small intestine. CONDITION: Postprocedure is good. DESCRIPTION OF PROCEDURE: The patient was brought into the operating room, placed on operating table in supine position. Normal DVT prophylaxis was instituted. The patient received 2 grams of IV cefotetan preoperatively. General anesthesia was induced. The abdomen was prepped and draped in normal sterile fashion using ChloraPrep. Next, a safety time-out was performed. Next, a mixture of 1% lidocaine with epinephrine and 0.25% Marcaine plain was used to anesthetize the planned incision site in the left upper quadrant. Next, a #11 scalpel was used to make a 5 mm left upper quadrant transverse surgical incision through which a Veress needle was placed intraabdominal. Three pops were heard going to the fascia. Saline drop test was used to confirm that the Veress needle was intraabdominal. The abdominal cavity was insufflated to 15 mmHg. Next, the Optiview technique was used to place a 5 mm port in the patient's left upper quadrant. A 5 mm 30 degree laparoscope was introduced into the abdomen and abdominal cavity was surveyed. The loops of small bowel in the left upper quadrant were dilated; and at the area of dilation, there was an adhesion from the small bowel to the anterior abdominal wall. The bowel loops distal to this area were decompressed. Next, we placed 2 additional 5 mm ports under direct vision, 1 in the patient's left lateral lower quadrant and 1 in the left lower quadrant. We then placed the patient in Trendelenburg position and right side tilted down. We then ran the bowel from the ileocecal valve back proximally. There was an adhesion in the right lower quadrant over the small intestine that was not obstructive, but we did lyse that adhesion as well. We continued to run the bowel back proximally until we came to the adhesion on the abdominal wall. We lysed the adhesion using cautery and sharp dissection using an Endo Scissor. We could see that the fluid was in the bowel decompressed and started to move distally. We then continued to run the small intestine proximally and noted that the bowel had twisted around itself about 360 degrees. We were able to untwist this bowel and ran the bowel back proximally, so that we encounter the jejunojejunostomy and ran the bowel back to the Jaycob limb where it entered the transverse colon mesentery. We ran the bowel back towards the jejunojejunostomy and then ran the biliopancreatic limb, which was also straight and normal. We ran the bowel back to the jejunojejunostomy and looked for a mesentery defect and found none, so the entire cause of the bowel obstruction was torsion of the small bowel around a fixed abdominal wall adhesion from the bowel in the left upper quadrant. We then ran the bowel again from the Jaycob limb where it entered the transverse colon mesentery all the way back to the terminal ileum and then back again proximally and again there were no other adhesions, no other areas of obstruction, no mesentery defect. We then removed the left lower quadrant and left lateral lower abdomen 5 mm ports and desufflated the abdomen through the last remaining port and removed the last port and laparoscope. We reapproximated all skin incisions with 4-0 Monocryl subcuticular stitch. We cleaned and dried the skin and applied Dermabond skin glue to the skin incisions. All counts were correct at the end of the case. There were no complications. The patient was awakened in stable condition prior to extubation and transferred to recovery room. MD SUSAN Wise/KAM / [id number]
[2021-02-16] MEDS: ondansetron HCL 4 MG/2 ML VIAL IVPUSH ×2 (00:43→09:41)
[2021-02-16] MEDS: Lactated Ringers 1,000 ML 125 ML IVCONT (00:43)
[2021-02-16] MEDS: cefoTEtan disodium 2 GM in 0.9 % Sodium Chloride 50 ML IV (02:44)
[2021-02-16 03:30] VITALS: PULSE 56; RESP 18; TEMP 37.2; O2SAT 96
[2021-02-16] MEDS: HYDROmorphone HCl 0.5 MG/0.5 ML SYRINGE IVPUSH (04:40)
[2021-02-16 05:59] LABS: MANUAL DIFF FLAG NO
[2021-02-16 06:10] LABS: Basophils Percent Auto 0.2 % (0-2); Eosinophils Absolute Auto 0.1 X10*3/uL (0.0-0.4); Hematocrit 35.1 % (37-47); Hemoglobin 11.5 g/dl (12.0-16.0); Imm Gran Abs Auto 0.03 X10*3/uL (0.00-0.03); Imm Gran Pct Auto 0.5 % (0.0-0.4); Lymphocytes Absolute Auto 1.3 X10*3/uL (1.2-4.9); Lymphocytes Percent Auto 19.4 % (20-40); Mean Corpuscular HGB Conc 32.8 g/dl (31.0-35.0); Mean Corpuscular Hemoglobin 31.3 pg (27.0-33.0); Mean Corpuscular Volume 95.4 fL (80-98); Mean Platelet Volume 10.8 fL (9.4-12.3); Monocytes Absolute Auto 0.9 X10*3/uL (0.1-1.2); Monocytes Percent Auto 14.2 % (2-11); Neutrophils Absolute Auto 4.2 X10*3/uL (2.0-8.3); Neutrophils Percent Auto 63.7 % (45-73); Platelet Count 199 X10*3/uL (160-400); Red Blood Count 3.68 X10*6/uL (4.20-5.50); Red Cell Distribution Width 12.3 % (11.0-16.0); White Blood Count 6.5 X10*3/uL (4.8-10.8)
[2021-02-16 07:26] VITALS: BP 108/55; PULSE 64; RESP 19; TEMP 36.7; O2SAT 98
--- NOTE | 2021-02-16 09:40 | HO.POSTANES ---
Post Anesthesia Evaluation Post Anesthesia Evaluation Vital Signs: Vital Signs Temp Pulse Resp BP Pulse Ox 02/16/21 07:26 98.1 F 64 19 108/55 L 98 02/16/21 03:30 99.0 F 56 18 96 02/15/21 23:30 98.9 F 63 18 112/73 96 Anesthesia: General Mental Status: Awake Pain Control: Satisfactory Nausea/Vomiting: None Hydration: Adequate Anesthesia-Related Issues: No Anes. Related Issues
[2021-02-16] MEDS: Famotidine/PF 20 MG/2 ML VIAL IVPUSH (09:41)
[2021-02-16] MEDS: 0.9 % Sodium Chloride Flush 3 ML SYRINGE IVFLUSH (09:42)
[2021-02-16] MEDS: Lactated Ringers 1,000 ML 50 ML IVCONT (09:47)
--- NOTE | 2021-02-16 09:48 | PM.PNGS ---
Subjective Subjective Date of Service: 02/16/21 Patient reports: no new complaints, feels better, tolerating liquids well and bowel movement (postive loose stool since surgery) Interval history: POD # 1 s/p diagnostic laparoscopy and lysis of 1 adhesive band which had resulted in intermittent SBO and from twisting of the bowel. Since surgery [facility] states she has no further pain, nausea or emesis, just tenderness at incision sites. Tolerating liquid diet well, wants to try solid foods before being discharged, does not want anything sweet. Physical Exam Vital Signs: Vital Signs: Last Vital Signs Temp 98.1 F 02/16/21 07:26 Pulse 64 02/16/21 07:26 Resp 19 02/16/21 07:26 BP 108/55 L 02/16/21 07:26 Pulse Ox 98 02/16/21 07:26 Body Mass Index 28.5 Const: General: cooperative, healthy appearing, comfortable and no acute distress GI: Inspection: No distended and Yes incision (clean, dry and intact with surgical glue) Palpation (GI): Soft to palpation, not firm, Tenderness to palpation present (GI) (mild tenderness over incisions), no guarding, not rigid, no hernias and no masses Progress Note: A&P Assessment and plan (1) S/P laparoscopic procedure: Status: Acute (2) Small bowel obstruction: Status: Acute (3) Intra-abdominal adhesions: Status: Acute (4) S/P gastric bypass: Status: Acute Assessment and Plan: 45 yo POD # 1 s/p diagnostic lap and DALIA. Pt is doing very well today, no pain, tolerating liquid diet, normal CBC. Case discussed with Dr Mcclain and patient will advance to bariatric 6 diet this am and then be discharged home. Post op instructions reviewed with patient and she will follow up in office with Dr Shannon in 2 weeks. Fall Risk Details Current Medications: Current Medications Generic Name Dose Route Start Last Admin Trade Name Freq PRN Reason Stop Dose Admin Famotidine 20 mg 02/13/21 23:58 02/16/21 09:41 Famotidine/Pf 20 Mg/2 Ml Vial IVPUSH 20 mg BID VIET Administration Fentanyl 25 mcg 02/15/21 12:04 Fentanyl Citrate/Pf 100 Mcg/2 Ml Vial IVPUSH Q5M PRN Pain, Moderate (Pain Scale 4-6 Hydromorphone HCl 0.5 mg 02/14/21 13:18 02/16/21 04:40 Hydromorphone Hcl 0.5 Mg/0.5 Ml Syringe IVPUSH 0.5 mg Q2H PRN Administration pain' Lactated Ringer's 1,000 mls @ 50 mls/hr 02/13/21 23:58 02/16/21 00:43 Lr IVCONT 125 mls/hr .Q20H VIET Administration Promethazine HCl 12.5 mg/ 50.5 mls @ 202 mls/hr 02/14/21 13:18 02/14/21 15:04 Sodium Chloride IV Infused Q4H PRN Infusion nausea Lactated Ringer's 500 mls @ 20 mls/hr 02/15/21 12:15 02/15/21 12:08 Lr IVCONT 20 mls/hr .Q24H VIET Administration Acetaminophen 1,000 mg in 100 mls @ 400 mls/hr 02/15/21 16:00 02/16/21 04:35 Ofirmev IV Infused Q6H VIET Infusion Ondansetron HCl 4 mg 02/14/21 00:00 02/16/21 09:41 Ondansetron Hcl 4 Mg/2 Ml Vial IVPUSH 4 mg Q8H VIET Administration Ondansetron HCl 4 mg 02/15/21 12:04 Ondansetron Hcl 4 Mg/2 Ml Vial IVPUSH ONCE PRN Nausea and Vomiting Oxycodone HCl 5 mg 02/15/21 12:04 Oxycodone Hcl Immed Release 5 Mg Tablet PO ONCE PRN Pain, Severe (Pain Scale 7-10) Sodium Chloride 3 ml 02/14/21 00:00 02/16/21 09:42 0.9 % Sodium Chloride Flush 3 Ml Syringe IVFLUSH 3 ml QSHIFT VIET Administration Time Spent With Patient Time: Total time spent is greater than 50% in coordination of care (as documented) at patient's floor/unit and/or counseling patient: Time with patient: 25 - 35 minutes Procedures Date of Service Date of Service: 02/16/21 Quality Stroke Does the patient have a stroke diagnosis?: No VTE Prior VTE?: No VTE Risk Level:: Medical - low VTE Device Contraindication: N/A - Device Ordered VTE Drug Contraindication: Treatment Not Indicated
--- NOTE | 2021-02-16 10:07 | MHC.CM.PN ---
Patient has been medically cleared for dc to home today, no services.
--- NOTE | 2021-02-16 10:34 | PC.NURSE ---
Pt A&Ox3, denies pain, tolerating bariatric 6 diet without issue. Plan is for D/C. Bowel sounds present x4 q.
== END 2021-02-16 11:44 | disposition home or self-care (01) | DRG 224 ==
LOC: HO.ED 20:36 → HO.EDOVER 21:41 → HO.IMC 02-14 13:00
PROVIDERS: Anesthesiology; Nurse Practitioner Family; Surgery; Admitting Provider Physician Assistant; Emergency Provider Emergency Medicine; PCP Family Medicine; Visit Provider Physician Assistant
PROC: 0DNW4ZZ Release Peritoneum, Percutaneous Endoscopic Approach (ICD-10-PCS; CPT 49320; principal; 2021-02-15 12:30)
DX: K91.30 Postprocedural intestinal obstruction, unspecified as to partial versus complete (principal); D72.829 Elevated white blood cell count, unspecified; Z98.84 Bariatric surgery status; Z20.822 Contact with and (suspected) exposure to COVID-19; Z79.899 Other long term (current) drug therapy
CPT/HCPCS: 36415; 71045; 74177; 80053; 81001; 81025; 83735; 85025; 85610; 86850; 86900; 86901; 87635; 99285; J0131; J1100; J1170; J2250; J2270; J2405; J2550; J3010; Q9967

== ENCOUNTER → 2021-03-06 15:08 | Outpatient (BNVA) | payer OTHER, SELFPAY | PROVIDERS: PCP Family Medicine; Referring Provider Family Medicine; Visit Provider Surgery | DX: E66.9 Obesity, unspecified (principal); K90.49 Malabsorption due to intolerance, not elsewhere classified; R73.03 Prediabetes; E53.8 Deficiency of other specified B group vitamins; E50.9 Vitamin A deficiency, unspecified; Z68.26 Body mass index [BMI] 26.0-26.9, adult; Z90.3 Acquired absence of stomach [part of]; Z90.49 Acquired absence of other specified parts of digestive tract; Z98.890 Other specified postprocedural states; Z98.84 Bariatric surgery status; Z79.899 Other long term (current) drug therapy | CPT/HCPCS: 99212 ==

== ENCOUNTER → 2021-04-02 08:12 | Outpatient (BNVA) | payer OTHER, SELFPAY | PROVIDERS: PCP Family Medicine; Visit Provider Dietitian, Registered | DX: E66.3 Overweight (principal); Z68.26 Body mass index [BMI] 26.0-26.9, adult | CPT/HCPCS: 97803 ==

== ENCOUNTER 2021-07-04 15:18 | Outpatient (REF) | payer OTHER, SELFPAY ==
[2021-07-04 16:27] LABS: MANUAL DIFF FLAG NO
[2021-07-04 16:33] LABS: Basophils Absolute Auto 0.1 X10*3/uL (0.0-0.2); Basophils Percent Auto 0.6 % (0-2); Eosinophils Absolute Auto 0.3 X10*3/uL (0.0-0.4); Eosinophils Percent Auto 3.6 % (0-4); Hemoglobin 14.2 g/dl (12.0-16.0); Imm Gran Abs Auto 0.01 X10*3/uL (0.00-0.03); Imm Gran Pct Auto 0.1 % (0.0-0.4); Lymphocytes Absolute Auto 2.4 X10*3/uL (1.2-4.9); Mean Corpuscular Hemoglobin 31.8 pg (27.0-33.0); Mean Corpuscular Volume 96.4 fL (80.0-98.0); Mean Platelet Volume 9.3 fL (9.4-12.3); Monocytes Absolute Auto 0.7 X10*3/uL (0.1-1.2); Monocytes Percent Auto 7.6 % (2-11); Neutrophils Absolute Auto 5.4 x10*3/uL (2.0-8.3); Neutrophils Percent Auto 61.1 % (45-73); Platelet Count 334 X10*3/uL (160-400); Red Blood Count 4.46 X10*6/uL (4.20-5.50); Red Cell Distribution Width 12.3 % (11.0-16.0); White Blood Count 8.9 X10*3/uL (4.8-10.8)
[2021-07-04 16:56] LABS: Alanine Aminotransferase 24 U/L (0-31); Albumin Level 4.7 g/dL (3.5-5.0); Alkaline Phosphatase 81 U/L (39-117); Anion Gap 11 (12-20); Aspartate Amino Transferase 27 U/L (5-31); Bilirubin Total 0.4 mg/dL (0.0-1.0); Blood Urea Nitrogen 8 mg/dL (9-16); Calcium 9.6 mg/dL (8.4-10.2); Carbon Dioxide 30 mmol/L (22-29); Chloride 101 mmol/L (96-108); Estimated Glomerular Filt Rate > 60; Glucose Random 100 mg/dL (60-115); Potassium 4.4 mmol/L (3.3-5.1); Sodium 138 mmol/L (135-145); Total Protein 7.8 g/dL (6.5-8.0)
[2021-07-04 17:19] LABS: Vitamin D 25-OH Total 33.8 ng/mL (>30)
[2021-07-04 17:31] LABS: Folate > 20.0 ng/mL (> or = 4.0); Vitamin B12 519 pg/mL (200-900)
[2021-07-06 13:41] LABS: Calcium (PTHI) 9.7 mg/dL (8.6-10.2); PTHI 54 pg/mL (14-64)
[2021-07-08 13:26] LABS: Vitamin B1 9 nmol/L (8-30)
[2021-07-10 10:51] LABS: Vitamin A 39 mcg/dL (38-98)
== END 2021-07-04 15:19 | disposition home or self-care (01) ==
LOC: HO.LAB 15:18
PROVIDERS: PCP Family Medicine; Referring Provider Family Medicine; Visit Provider Physician Assistant
DX: M79.3 Panniculitis, unspecified (principal); E53.8 Deficiency of other specified B group vitamins; E50.9 Vitamin A deficiency, unspecified; Z98.84 Bariatric surgery status; Z90.3 Acquired absence of stomach [part of]
CPT/HCPCS: 36415; 80053; 82306; 82607; 82746; 83970; 84425; 84590; 85025; 99212

== ENCOUNTER 2021-07-11 13:50 | Outpatient (REF) | payer OTHER, SELFPAY ==
--- NOTE | ~2021-07-11 | XR_ITS ---
EXAMINATION: XR KNEE, LEFT CLINICAL INFORMATION: Left knee pain. COMPARISON: None TECHNIQUE: AP, lateral, tunnel, and sunrise views of the left knee. FINDINGS: There is marked nonuniform joint space narrowing at the lateral facets at the patellofemoral compartment with large marginal osteophytes and subchondral sclerosis. The joint space narrowing at the lateral facets is more pronounced as compared to prior. Osseous fragmentation is present at the lateral aspect of the patella. Moderate sized marginal osteophytes. More [id number] osteoarthritis in the medial and lateral compartments. No joint effusion. Bones are osteopenic. No fracture or malalignment. XR/XR knee LT 4V IMPRESSION: Progression of the tricompartmental osteoarthritis in the left knee, most severe in the lateral facets of the patellofemoral compartment.
== END 2021-07-11 13:51 | disposition home or self-care (01) ==
LOC: HO.XRAY 13:50
PROVIDERS: PCP Family Medicine; Visit Provider Hospitalist
DX: M25.562 Pain in left knee (principal)
CPT/HCPCS: 73564

== ENCOUNTER 2021-07-16 06:32 | Outpatient (REF) | payer OTHER, SELFPAY ==
[2021-07-16 06:42] LABS: MANUAL DIFF FLAG NO
[2021-07-16 07:13] LABS: Basophils Percent Auto 0.7 % (0-2); Eosinophils Absolute Auto 0.3 X10*3/uL (0.0-0.4); Eosinophils Percent Auto 5.3 % (0-4); Hematocrit 42.9 % (37.0-47.0); Hemoglobin 13.7 g/dl (12.0-16.0); Imm Gran Abs Auto 0.02 X10*3/uL (0.00-0.03); Imm Gran Pct Auto 0.3 % (0.0-0.4); Lymphocytes Absolute Auto 1.7 X10*3/uL (1.2-4.9); Lymphocytes Percent Auto 29.4 % (20-40); Mean Corpuscular HGB Conc 31.9 g/dl (31.0-35.0); Mean Corpuscular Hemoglobin 31.4 pg (27.0-33.0); Mean Corpuscular Volume 98.4 fL (80.0-98.0); Mean Platelet Volume 9.8 fL (9.4-12.3); Monocytes Absolute Auto 0.6 X10*3/uL (0.1-1.2); Monocytes Percent Auto 9.7 % (2-11); Neutrophils Absolute Auto 3.2 x10*3/uL (2.0-8.3); Neutrophils Percent Auto 54.6 % (45-73); Platelet Count 300 X10*3/uL (160-400); Red Blood Count 4.36 X10*6/uL (4.20-5.50); Red Cell Distribution Width 12.3 % (11.0-16.0); White Blood Count 5.9 X10*3/uL (4.8-10.8)
[2021-07-16 07:38] LABS: Alanine Aminotransferase 17 U/L (0-31); Albumin Level 4.3 g/dL (3.5-5.0); Alkaline Phosphatase 69 U/L (39-117); Anion Gap 12 (12-20); Aspartate Amino Transferase 18 U/L (5-31); Bilirubin Total 0.6 mg/dL (0.0-1.0); Blood Urea Nitrogen 11 mg/dL (9-16); Calcium 9.6 mg/dL (8.4-10.2); Carbon Dioxide 26 mmol/L (22-29); Chloride 105 mmol/L (96-108); Cholesterol 180 mg/dL; Estimated Glomerular Filt Rate > 60; Glucose Fasting 105 mg/dL (60-99); HDL Cholesterol 59 mg/dL; Iron 72 mcg/dL (30-160); LDL Cholesterol Calculated 105 mg/dl; Percent Iron Saturation 21 % (15-50); Potassium 4.6 mmol/L (3.3-5.1); Sodium 138 mmol/L (135-145); Total Iron Binding Capacity 348 mcg/dL (228-428); Total Protein 7.2 g/dL (6.5-8.0); Triglycerides 81 mg/dL; Unsaturated Iron Binding 276 ug/dL
[2021-07-16 07:59] LABS: Ferritin 11 ng/mL (10-250); TSH reflex Free T4 1.72 uIU/mL (0.32-4.0)
[2021-07-16 08:57] LABS: Folate 19.2 ng/mL (> or = 4.0); Vitamin B12 461 pg/mL (200-900)
[2021-07-19 19:41] LABS: Vitamin A 39 mcg/dL (38-98)
== END 2021-07-16 06:33 | disposition home or self-care (01) ==
LOC: HO.LAB 06:32
PROVIDERS: Physician Assistant; PCP Family Medicine; Visit Provider Family Medicine
DX: Z00.00 Encounter for general adult medical examination without abnormal findings (principal); E50.9 Vitamin A deficiency, unspecified; E53.8 Deficiency of other specified B group vitamins; K91.2 Postsurgical malabsorption, not elsewhere classified; Z90.3 Acquired absence of stomach [part of]
CPT/HCPCS: 36415; 80053; 80061; 82306; 82607; 82728; 82746; 83540; 84443; 84590; 85025

== ENCOUNTER → 2021-08-01 08:47 | Outpatient (BNVA) | payer OTHER, SELFPAY | PROVIDERS: PCP Family Medicine; Referring Provider Family Medicine; Visit Provider Physician Assistant | DX: M79.3 Panniculitis, unspecified (principal); Z98.84 Bariatric surgery status | CPT/HCPCS: 99212 ==

== ENCOUNTER 2021-12-14 06:09 | Outpatient (REF) | payer OTHER, SELFPAY ==
[2021-12-14 06:18] LABS: MANUAL DIFF FLAG NO
[2021-12-14 07:35] LABS: Basophils Percent Auto 0.3 % (0-2); Eosinophils Absolute Auto 0.3 X10*3/uL (0.0-0.4); Eosinophils Percent Auto 4.3 % (0-4); Hematocrit 41.4 % (37.0-47.0); Hemoglobin 13.4 g/dl (12.0-16.0); Imm Gran Abs Auto 0.01 X10*3/uL (0.00-0.03); Imm Gran Pct Auto 0.2 % (0.0-0.4); Lymphocytes Absolute Auto 1.8 X10*3/uL (1.2-4.9); Lymphocytes Percent Auto 30.9 % (20-40); Mean Corpuscular HGB Conc 32.4 g/dl (31.0-35.0); Mean Corpuscular Hemoglobin 31.9 pg (27.0-33.0); Mean Corpuscular Volume 98.6 fL (80.0-98.0); Mean Platelet Volume 10.4 fL (9.4-12.3); Monocytes Absolute Auto 0.5 X10*3/uL (0.1-1.2); Monocytes Percent Auto 9.1 % (2-11); Neutrophils Absolute Auto 3.2 x10*3/uL (2.0-8.3); Neutrophils Percent Auto 55.2 % (45-73); Platelet Count 278 X10*3/uL (160-400); Red Cell Distribution Width 12.4 % (11.0-16.0); White Blood Count 5.8 X10*3/uL (4.8-10.8)
[2021-12-14 07:56] LABS: Alanine Aminotransferase 13 U/L (0-31); Albumin Level 4.1 g/dL (3.5-5.0); Alkaline Phosphatase 69 U/L (39-117); Anion Gap 7 (12-20); Aspartate Amino Transferase 17 U/L (5-31); Bilirubin Total 0.5 mg/dL (0.0-1.0); Blood Urea Nitrogen 8 mg/dL (9-16); Calcium 9.1 mg/dL (8.4-10.2); Carbon Dioxide 29 mmol/L (22-29); Chloride 106 mmol/L (96-108); Cholesterol 154 mg/dL; Estimated Glomerular Filt Rate > 60; Glucose Fasting 96 mg/dL (60-99); HDL Cholesterol 56 mg/dL; LDL Cholesterol Calculated 86 mg/dl; Potassium 4.3 mmol/L (3.3-5.1); Sodium 138 mmol/L (135-145); Total Protein 6.9 g/dL (6.5-8.0); Triglycerides 64 mg/dL
[2021-12-14 08:12] LABS: TSH reflex Free T4 1.83 uIU/mL (0.32-4.0)
[2021-12-14 08:17] LABS: Estimated Average Glucose 105 mg/dL; Hemoglobin A1c % 5.3 %
== END 2021-12-14 06:10 | disposition home or self-care (01) ==
LOC: HO.LAB 06:09
PROVIDERS: PCP Family Medicine; Visit Provider Family Medicine
DX: Z00.00 Encounter for general adult medical examination without abnormal findings (principal); R73.01 Impaired fasting glucose
CPT/HCPCS: 36415; 80053; 80061; 83036; 84443; 85025

== ENCOUNTER 2022-02-15 08:20 | Outpatient (REF) | payer OTHER, SELFPAY ==
--- NOTE | ~2022-02-15 | MM_ITS ---
EXAMINATION: MM SCREENING DIGITAL BREAST TOMOSYNTHESIS, BILATERAL CLINICAL INFORMATION: Screening. Asymptomatic. The lifetime risk of breast cancer based on the Tyrer-Cuzick Model is 16%. COMPARISON: Mammography: 08/15/2020, 02/24/2018, 01/29/2017 TECHNIQUE: Digital breast tomosynthesis is performed in both the craniocaudal and mediolateral oblique views along with computer-aided detection (CAD). Synthesized 2D images are generated from the tomosynthesis. FINDINGS: There are scattered areas of fibroglandular density (ACR BI-RADS breast composition Category b). There are no significant masses, abnormal calcifications, or other abnormalities. Parenchymal pattern is similar to prior studies. MM/MM tomosynthesis screening BI IMPRESSION: No mammographic evidence of malignancy. ASSESSMENT: BI-RADS 1: Negative RECOMMENDATION: Routine annual mammography screening. This patient's information was entered into a reminder system with a target due date for their next mammogram.
== END 2022-02-15 08:21 | disposition home or self-care (01) ==
LOC: HO.MAMMO 08:20
PROVIDERS: PCP Family Medicine; Visit Provider Family Medicine
DX: Z12.31 Encounter for screening mammogram for malignant neoplasm of breast (principal)
CPT/HCPCS: 77063; 77067

== ENCOUNTER → 2022-04-19 10:22 | Outpatient (BNVA) | payer OTHER, SELFPAY | PROVIDERS: PCP Family Medicine; Visit Provider Physician Assistant Surgical | DX: E66.3 Overweight (principal); Z68.28 Body mass index [BMI] 28.0-28.9, adult; Z98.84 Bariatric surgery status | CPT/HCPCS: 99212 ==

== ENCOUNTER 2022-05-31 09:07 | Day surgery (SDC) | payer OTHER, SELFPAY ==
[2022-05-24 09:57] VITALS: BMI 28.8
--- NOTE | 2022-05-24 15:59 | P.F2F_ITS ---
Service Date Service Date: 05/24/22 Encounter Date of encounter: 05/31/22 Reasons for Services Signs and symptoms assessed: Panniculitis s/p panniculectomy Reason for retirement: wound care and other (drain care) Homebound: Leaving the home is medically contraindicated at this time without the asist of a device and/or another person due th the listed conditions above and below. Reason homebound: non-weight bearing Certification: Based on the above findings, I certify that this patient is confined to the home and needs intermittent retirement care, physical therapy and/or speech therapy, or continues to need occupational therapy. The patient is under my care, and I have initiated the establishment of the plan of care. The patient will be followed by a physician who will periodically review the plan of care.
--- NOTE | 2022-05-25 12:41 | MHC.SHP ---
Pre-Procedural Eval Section A Date of Service: 05/25/22 The patient is an INPATIENT: No The History & Physical has been completed within 30 days and I have reviewed it.: Yes Section B Chief Complaint: Panniculitis, unspecified Relevant Family History (Specify if Yes): No Relevant Social History: None Present Medications: None Medical History: No relevant PMH History of Previous Operations: Relevant previous surgery/procedure and date(s) (Lap gastric bypass) Allergies: Allergies Allergy/AdvReac Type Severity Reaction Status Date / Time No Known Allergies Allergy Verified 04/19/22 10:39 [No Known Allergies*] Review of Systems Sugical H&P ROS: Negative: Constitution, Cardiovascular, Respiratory, Neurological, Psychiatric, Hem-Onc, Allergic/Immunologic, Gastrointestinal, Genitourinary, Musculoskeletal, Integumentary, Endocrine and Eyes/Ears/Nose/Throat Exam Surgical H&P Exam: Normal: HEENT, Normal: Heart, Normal: Lungs, Normal: Extremities, Normal: Skin and Normal: Neurological and Significant Findings: Abdomen (rash under pannus) Plan Diagnosis/Plan: Unchanged I have reviewed the history and physical and performed a pertinent physical examination on my patient. No changes have occurred unless specified.
[2022-05-28 14:35] LABS: Estimated Average Glucose 105 mg/dL; Hemoglobin A1c % 5.3 %
[2022-05-28 14:37] LABS: INTERNATIONAL NORM RATIO 1.1 (0.9-1.1); Prothrombin Time 12.4 SEC (10.0-13.1)
[2022-05-28 14:40] LABS: Partial Thromboplastin Time 31.4 SEC (26.0-36.4)
[2022-05-28 14:55] LABS: Alanine Aminotransferase 13 U/L (0-31); Albumin Level 4.6 g/dL (3.5-5.0); Alkaline Phosphatase 64 U/L (39-117); Anion Gap 18 (12-20); Aspartate Amino Transferase 18 U/L (5-31); Bilirubin Total 0.4 mg/dL (0.0-1.0); Blood Urea Nitrogen 12 mg/dL (9-16); C Reactive Protein 0.06 mg/dL (< or = 0.50); Calcium 9.4 mg/dL (8.4-10.2); Carbon Dioxide 23 mmol/L (22-29); Chloride 103 mmol/L (96-108); Creatinine Clr Calc Pharmacy 102.4; Estimated Glomerular Filt Rate > 60; Glucose Random 79 mg/dL (60-115); Potassium 4.5 mmol/L (3.3-5.1); Sodium 139 mmol/L (135-145); Total Protein 7.4 g/dL (6.5-8.0)
--- NOTE | 2022-05-30 09:48 | HO.ANESPROP2 ---
Documented by User: Lamar Sewell NP 05/30/22 09:52 HPI - Anesthesia Eval Consult details Narrative: 47yo F for Panniculectomy s/p ex lap 01/2021 (adhesions) with GA-ETT 8 s/p gastric bypass 2015 [facility] Active Problems Active Problems: All Active Problems (Updated 05/24/22 @ 09:58 by Candi Lau RN) Laboratory examination ordered as part of a routine general medical examination (Acute) Small bowel obstruction (Acute) S/P laparoscopic procedure (Acute) Intra-abdominal adhesions (Acute) Panniculitis (Acute) Posterior left knee pain (Acute) Elevated fasting glucose (Acute) Adult general medical exam (Acute) Screening for cervical cancer (Acute) Breast cancer screening by mammogram (Acute) Panic attacks (Acute) Anxiety (Acute) Intestinal malabsorption (Acute) S/P gastric bypass (Acute) Vitamin B12 deficiency (Acute) Vitamin A deficiency (Acute) Intestinal malabsorption following gastrectomy (Acute) Overweight (BMI 25.0-29.9) (Acute) Past Medical History Medical History Arthritis Bowel obstruction COVID-19 vaccination declined Gestational diabetes Intestinal malabsorption Intestinal malabsorption following gastrectomy Leukocytosis Overweight (BMI 25.0-29.9) Pre-diabetes Vitamin A deficiency Vitamin B12 deficiency Family History Family History Father Type 2 diabetes mellitus HTN (hypertension) Mother HTN (hypertension) Type 2 diabetes mellitus Cancer Maternal Grandmother Type 2 diabetes mellitus Skin cancer Maternal Grandfather No problems noted. Maternal Aunt Breast cancer Brother No problems noted. Son No problems noted. Son No problems noted. Son No problems noted. 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 If so, by whom?: No Are you DNR?: No Advance Directives: No Advance Directives Information Provided: Yes (brochure mailed) Advance Directives on File: No Recently lost weight without trying: No Eating poorly because of decreased appetite: No Nutrition Risks: No Nutritional Risk Patient : No FDLMP: 04/29/22 : No Poor oral hygiene: No (dental implants-upper front 2 teeth) service: No Current occupational status: unemployed Meds Allergies Allergy/AdvReac Type Severity Reaction Status Date / Time No Known Allergies Allergy Verified 04/19/22 10:39 [No Known Allergies*] Home Medications Medication Instructions Recorded Confirmed Last Taken Type Biotin 1 tab PO DAILY 08/23/20 05/24/22 02/11/21 History iron,carbonyl 65 mg-vitamin C 125 1 tab PO DAILY 02/13/21 04/19/22 Unknown History mg tablet,delayed release (Vitron-C) multivitamin 1 tab PO DAILY 02/13/21 05/24/22 02/11/21 History Exam Exam Date and Time: May 30, 2022 0948 Height,Weight and Vital Signs: Height 5 ft 4 in Weight 76.204 kg Pertinent Lab Results Pertinent Lab Results: Laboratory Tests 05/28/22 05/28/22 05/28/22 13:26 13:29 13:29 PT 12.4 INR 1.1 APTT 31.4 Sodium 139 Potassium 4.5 Chloride 103 Carbon Dioxide 23 Anion Gap 18 BUN 12 Creatinine 0.70 Estim Creat Clear Calc 102.4 Estimated GFR > 60 Random Glucose 79 Estimat Average Glucose Hemoglobin A1c % Calcium 9.4 Total Bilirubin 0.4 AST 18 ALT 13 Alkaline Phosphatase 64 C-Reactive Protein 0.06 Total Protein 7.4 Albumin 4.6 Blood Type O Positive Antibody Screen NEGATIVE 05/28/22 13:29 PT INR APTT Sodium Potassium Chloride Carbon Dioxide Anion Gap BUN Creatinine Estim Creat Clear Calc Estimated GFR Random Glucose Estimat Average Glucose 105 Hemoglobin A1c % 5.3 Calcium Total Bilirubin AST ALT Alkaline Phosphatase C-Reactive Protein Total Protein Albumin Blood Type Antibody Screen Laboratory Tests 12/14/21 06:17 WBC 5.8 Hgb 13.4 Hct 41.4 Plt Count 278 Assessment and Plan Assessment Anesthesia Assessment: Chart Reviewed Documented by User: Isaac Patel MD 05/31/22 10:52 PMFSH Past Medical History Medical History Arthritis Bowel obstruction COVID-19 vaccination declined Gestational diabetes Intestinal malabsorption Intestinal malabsorption following gastrectomy Leukocytosis Overweight (BMI 25.0-29.9) Pre-diabetes Vitamin A deficiency Vitamin B12 deficiency Family History Family History Father Type 2 diabetes mellitus HTN (hypertension) Mother HTN (hypertension) Type 2 diabetes mellitus Cancer Maternal Grandmother Type 2 diabetes mellitus Skin cancer Maternal Grandfather No problems noted. Maternal Aunt Breast cancer Brother No problems noted. Son No problems noted. Son No problems noted. Son No problems noted. 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 If so, by whom?: No Are you DNR?: No Advance Directives: No Advance Directives Information Provided: Yes (brochure mailed) Advance Directives on File: No Recently lost weight without trying: No Eating poorly because of decreased appetite: No Nutrition Risks: No Nutritional Risk Patient : No FDLMP: 04/29/22 : No Poor oral hygiene: No (dental implants-upper front 2 teeth) service: No Current occupational status: unemployed Meds Allergies Allergy/AdvReac Type Severity Reaction Status Date / Time No Known Allergies Allergy Verified 04/19/22 10:39 [No Known Allergies*] Home Medications Medication Instructions Recorded Confirmed Last Taken Type Biotin 1 tab PO DAILY 08/23/20 05/24/22 02/11/21 History iron,carbonyl 65 mg-vitamin C 125 1 tab PO DAILY 02/13/21 04/19/22 Unknown History mg tablet,delayed release (Vitron-C) multivitamin 1 tab PO DAILY 02/13/21 05/24/22 02/11/21 History Exam Airway Mallampati Class: II TM Dist: >3cm Neck ROM: Full Loose/Missing/Broken Teeth: Yes (2 upper front impants) Heart: [id number] Lungs: cta b/l Assessment and Plan Assessment Anesthesia Assessment: Anesthesia Plan Discussed Final Anesthetic Review Family History of Problems with Anesthesia: No History of Problems with Anesthesia: No NPO: Yes ASA Class: II Final Preanesthetic Review: No Changes in Pt Med Stat, Meds/Allgs Chart Reviewed, Consent Obtained/Reviewed and Anes Risks/Benef Reviewed Patient Risk: Intermediate Procedure Risk: Intermediate Assessment/Block/Sedation in SS: Assess/Block/Sedation-SS Anesthetic Plan Anesthetic Plan: GA and Agree w/ Assess. and Plan Disposition: Standard PACU
[2022-05-30 14:26] LABS: COVID-19 Test Negative (Negative); IDNOW Serial# 9DB6401D
[2022-05-31] VITALS (8 sets, daily range): BP systolic 101–129; BP diastolic 60–74; PULSE 75–104; RESP 16–18; TEMP 36.4–37.4; O2SAT 95–99
[2022-05-31 09:32] LABS: UPreg QC Valid YES; Urine Pregnancy NEGATIVE (NEGATIVE)
--- NOTE | 2022-05-31 11:33 | P.BOP_ITS ---
Brief Operative Note Date of Service: 05/31/22 Pre-op diagnosis: Panniculitis Post-op diagnosis: same Procedure: PROCEDURE: Panniculectomy with umbilical transposition and bilateral subcutaneous fat flaps INDICATION: This a 41 year old female who underwent laparoscopic gastric bypass on 04/18/2016. She had an excellent result achieving a BMI of 28.9 kg/m2 with a total weight loss of 79.2lbs, or 32% of her TBWL. As a result, she has developed panniculitis which has not resolved despite continuous use of clotrimazole ointment as well as skin irritation. On exam she has extreme skin laxity due to massive weight loss, with the abdominal pannus completely hanging 4cm below the pubis. Panniculectomy was recommended. We discussed the two options for the panniculectomy of using a combined vertical and horizontal incisions or just a horizontal (bikini) incision. It was my recommendation to do only horizontal incision based on her body habitus and skin laxity. The patient agreed with this. Risks and complications were discussed with the patient including bleeding, infection, umbilical loss, flap necrosis, asymmetry, dehiscence, seroma, VTE. The patient understood the risks and was in agreement to proceed with surgery. PROCEDURE: The incisions were appropriately marked at the preop area with the patient standing and laying down. After induction of general anesthesia, pneumatic compression devices were placed. The patient was prepped and draped in the usual sterile manner and the incisions were marked again and confirmed. The skin was infiltrated with lidocaine and epinephrine. The #10 blade scalpel was used for the large incisions and the #15 blade scalpel for the umbilicus. Cautery was used to divide the subcutaneous tissues until the fascia was identified. Then I used the cautery to separate the pannus from the fascia. The inferior incision was made initially and I mobilized the flap for a several centimeters cephalad to the umbilicus. The umbilicus was incised circumferentially and detached from the surrounding tissues all the way to the fascia while its stalk was preserved. With the patient in reflex position I confirmed that the skin flaps were appropriate and would allow for the tissues to come together with reasonable tension. At that point a horizontal incision was made 4 cm above the umbilicus. #10 blade was used for the skin, cautery for the dermis and the remaining tissues. A subcutaneous fat flap was raised from the upper skin flap in order to fill the space under the skin and support the closure of the two flaps. In addition the inferior flap was mobilized caudally for a few centimeters to create a space for the subcutaneous fat flap as well as relieve tension from the closure. A circumferential incision was made at the area where the umbilicus would be re-implanted. The umbilicus was appropriately oriented and was delivered through the defect and was secured in place with a [place]. No bleeding was noted anywhere. One SADIE drain was placed from the left corner of the horizontal incision across the wound and was secured in place with a silk suture. A total of 14ml of Zynrelef was applied on top of the fascia and under the subcutaneous fat flaps. The subcutaneous fat flap was secured under the inferior flap with several interrupted 3.0 Monocryl sutures. The two flaps were brought together and were attached at the midline of the horizontal incision with a #3.0 Monocryl suture. At that point the umbilicus was properly oriented and was re-approximated to the skin with 8 interrupted 3.0 Monocryl sutures. In a similar fashion the skin flaps were re-approximated with multiple 3.0 Monocryl sutures. The skin was closed in all incisions and umbilicus with 4.0 Monocryl sutures. Steri-strips, xeroform gauzes and gauzes were used to cover the incisions. An abdominal binder was also placed. The was awaken and was transferred to the recover room in a stable condition. I was present and performed the entire procedure. Campbell was the personnel security assistant. Clinton Fairbanks MD, PhD, FACS Surgeon: Stephon Fairbanks MD Surgeon: Stephon Fairbanks MD Anesthesia: GETA and local (& 14 ml of Zynrelef) Was an Medical Records Field Technician used for this Procedure?: No Medical Records Field Technician: Zenaida Hightower Estimated blood loss (mL): 10 IV fluids (mL): 2,500 Urine output (mL): 0 (No Clarke to record) Pathology: other (Abdominal pannus) Condition: stable Disposition: PACU
[2022-05-31] MEDS: Lactated Ringers 1,000 ML 80 ML IVCONT (11:46)
[2022-05-31] MEDS: Lactated Ringers 1,000 ML 100 ML IVCONT (11:46)
== END 2022-05-31 16:46 | disposition home or self-care (01) ==
PROVIDERS: Nurse Practitioner; Physician Assistant Surgical; PCP Family Medicine; Visit Provider Surgery
PROC: 0JB80ZZ Excision of Abdomen Subcutaneous Tissue and Fascia, Open Approach (ICD-10-PCS; CPT 15830; principal; 2022-05-31 11:00)
DX: M79.3 Panniculitis, unspecified (principal); K90.9 Intestinal malabsorption, unspecified; M19.90 Unspecified osteoarthritis, unspecified site; Z98.84 Bariatric surgery status; Z90.49 Acquired absence of other specified parts of digestive tract; D72.829 Elevated white blood cell count, unspecified; E66.3 Overweight; Z68.28 Body mass index [BMI] 28.0-28.9, adult; E50.9 Vitamin A deficiency, unspecified; E53.8 Deficiency of other specified B group vitamins; Z79.899 Other long term (current) drug therapy
CPT/HCPCS: 15830; 15847; 36415; 80053; 81025; 83036; 85610; 85730; 86140; 86850; 86900; 86901; 87635; 88304; C9088; J0131; J0690; J1100; J1170; J2250; J2370; J2405; J3010; J3370

== ENCOUNTER → 2022-06-07 11:24 | Outpatient (BNVA) | payer OTHER, SELFPAY | PROVIDERS: PCP Family Medicine; Referring Provider Family Medicine; Visit Provider Physician Assistant Surgical | DX: Z98.890 Other specified postprocedural states (principal) | CPT/HCPCS: 99212 ==

== ENCOUNTER → 2022-06-14 13:31 | Outpatient (BNVA) | payer OTHER, SELFPAY | PROVIDERS: PCP Family Medicine; Visit Provider Physician Assistant Surgical | DX: E66.3 Overweight (principal); Z98.890 Other specified postprocedural states; Z98.84 Bariatric surgery status; Z68.27 Body mass index [BMI] 27.0-27.9, adult | CPT/HCPCS: 99212 ==

== ENCOUNTER → 2022-07-09 14:20 | Outpatient (BNVA) | payer OTHER, SELFPAY | PROVIDERS: PCP Family Medicine; Referring Provider Family Medicine; Visit Provider Physician Assistant Surgical | DX: E66.3 Overweight (principal); Z98.84 Bariatric surgery status; Z98.890 Other specified postprocedural states | CPT/HCPCS: 99212 ==